=== PATIENT | female | born 1995 | race African-American/Black ===

== ENCOUNTER 2024-11-22 11:58 | Observation (INO) | payer OTHER ==
--- NOTE | 2024-11-22 12:46 | DVH ---
CLINICAL HISTORY: -induced hypertension. COMPARISON: None TECHNIQUE: biophysical profile was performed. Transabdominal sonographic images of the fetus we re obtained. FINDINGS: The fetus is in cephalic position. heart rate measures 139 BPM. Amniotic fluid index measures 15.2 cm. The placenta is posterior in position without evidence of previa or abruption. The umbilical cord wraps at least partly around the neck. Possible nuchal cord BPP profile is an overall score of 8/8, with 2/2 points for breathing, with at least one episode of breathing over a 30 second duration during a 30 minute observation, 2/2 points for m ovements, with 3 or more discrete body or limb movements, 2/2 points for tone, with one or more episodes of extremity extension with return to flexion, or opening and closing of hand, and 2/ 2 points for amniotic fluid, with at least 1 pocket of amniotic fluid that measures 2 cm in 2 perpend icular planes. IMPRESSION: 1. BPP score of 8/ 2. Possible nuchal cord.
[2024-11-22 12:58] LABS: Hematocrit 31.5 % (36.0-46.0); Hemoglobin 10.6 g/dL (12.2-16.2); Mean Corpuscular Hemoglobin 26.9 pg (28.0-32.0); Mean Corpuscular Volume 80.1 fL (80.0-100.0); Nucleated Red Blood Cells % 0.1 %
[2024-11-22 13:15] LABS: INR 0.97 (0.9-1.15); Partial Thromboplastin Time 25.3 SEC (24.5-34.5); Prothrombin Time 10.3 sec (9.3-11.8)
[2024-11-22 13:15] LABS: Urine Protein, UAD 1+ (Negative)
[2024-11-22 13:21] LABS: Albumin 4.2 g/dL (3.2-4.8); Alkaline Phosphatase 87 U/L (46-116); Anion Gap 9 (5-15); Calcium 8.9 mg/dL (8.7-10.4); Carbon Dioxide 23 mmol/L (20-31); Chloride 105 mmol/L (98-107); Glucose 79 mg/dL (74-106); Potassium 3.9 mmol/L (3.5-5.1); Sodium 137 mmol/L (136-145); Total Protein 6.7 g/dL (5.7-8.2); Uric Acid 4.0 mg/dL (3.1-7.8)
[2024-11-22 13:22] LABS: Alanine Aminotransferase < 9 U/L (7-40); BUN/Creatinine Ratio 11.4 (10.0-20.0); Bilirubin, Total 0.2 mg/dL (0.2-1.0); Blood Urea Nitrogen < 5 mg/dL (9-23)
[2024-11-22 13:39] LABS: Protein, Urine 17.0 mg/dL (1-14)
--- NOTE | 2024-11-22 22:36 | DVHDS2 ---
Physician Discharge Progress N Final Diagnosis: testing for hx of preeclampsia Operations or Procedures: Operations or Procedures 29yo IUP@32.3wks. Denies UCs/LOF/VB/CARRASCO/vision changes/RUQ pain. Endorses +FM. VSS, normotensive NST reactive FKC/PTL/preE precautions reviewed Dr. Steele consulted, agrees with POC. Laboratory Tests Test 11/22/24 12:04 11/22/24 12:30 Range/Units Urine Color Yellow Yellow Urine Clarity Turbid H Clear Urine pH 6.0 5.0-9.0 Urine Specific Mullen 1.026 1.001-1.035 Urine Protein 1+ H Negative Urine Ketones Trace Negative Urine Blood Negative Negative /uL Urine Nitrite Negative Negative Urine Bilirubin Negative Negative Urine Urobilinogen Normal Negative mg/dL Urine Leukocyte Esterase 1+ Negative /uL Urine RBC 4 0 - 4 /hpf Urine Microscopic WBC 3 0-5 /HPF Urine Squamous Epithelial Cells Mod <5 /hpf Urine Calcium Oxalate Crystals Few None Seen Urine Bacteria Few H None Seen /hpf Urine Mucus Few None Seen Urine Creatinine 213.32 H 30.0-125.0 mg/dL Urine Protein/Creatinine Ratio 0.08 Urine Glucose Trace Normal mg/dL Urine Total Protein 17.0 H 1-14 mg/dL White Blood Count 7.4 4.4-10.8 10^3/uL Red Blood Count 3.93 L 4.0-5.20 10^6/uL Hemoglobin 10.6 L 12.2-16.2 g/dL Hematocrit 31.5 L 36.0-46.0 % Mean Corpuscular Volume 80.1 80.0-100.0 fL Mean Corpuscular Hemoglobin 26.9 L 28.0-32.0 pg Mean Corpuscular Hemoglobin Concent 33.6 32.0-36.0 g/dL Red Cell Distribution Width 15.5 H 11.8-14.3 % Platelet Count 250 140-450 10^3/uL Mean Platelet Volume 7.8 6.9-10.8 fL Neutrophils (%) (Auto) 73.8 37.0-80.0 % Lymphocytes (%) (Auto) 19.4 10.0-50.0 % Monocytes (%) (Auto) 5.7 0.0-12.0 % Eosinophils (%) (Auto) 0.6 0.0-7.0 % Basophils (%) (Auto) 0.5 0.0-2.0 % Neutrophils # (Auto) 5.4 1.6-8.6 10 ^3/uL Lymphocytes # (Auto) 1.4 0.4-5.4 10 ^3/uL Monocytes # (Auto) 0.4 0-1.3 10 ^3/uL Eosinophils # (Auto) 0 0-0.8 10 ^3/uL Basophils # (Auto) 0 0-0.2 10 ^3/uL Nucleated Red Blood Cells 0.1 % Prothrombin Time 10.3 9.3-11.8 sec Prothrombin Time INR 0.97 0.9-1.15 Activated Partial Thromboplast Time 25.3 24.5-34.5 SEC Sodium Level 137 136-145 mmol/L Potassium Level 3.9 3.5-5.1 mmol/L Chloride Level 105 98-107 mmol/L Carbon Dioxide Level 23 20-31 mmol/L Anion Gap 9 5-15 Blood Urea Nitrogen < 5 L 9-23 mg/dL Creatinine 0.44 L 0.550-1.02 mg/dL Glomerular Filtration Rate Calc 133 >90 mL/min BUN/Creatinine Ratio 11.4 10.0-20.0 Serum Glucose 79 74-106 mg/dL Uric Acid 4.0 3.1-7.8 mg/dL Calcium Level 8.9 8.7-10.4 mg/dL Total Bilirubin 0.2 0.2-1.0 mg/dL Aspartate Amino Transferase (AST) 21 13-40 U/L Alanine Aminotransferase (ALT) < 9 7-40 U/L Alkaline Phosphatase 87 46-116 U/L Total Protein 6.7 5.7-8.2 g/dL Albumin 4.2 3.2-4.8 g/dL Other Interventions Other Interventions [place] [address] Ph: [phone] DIAGNOSTIC IMAGING Diagnostic Imaging Report : [id number] Signed PATIENT: JAVIER IBANEZ ACCT: [id number] UNIT: [id number] : 1995 LOC: [facility] ROOM / BED: TRIAGE2 / A AGE / SEX: 29 / F ADM STATUS: ADM IN SERVICE 1204 ORDERING PHYSICIAN: CÉSAR WELLS CNM PROCEDURE(s): BPP - BIOPHYSICAL PROFILE REASON: [facility] ORDER NUMBER(s): [id number], ACCESSION NUMBER(s): [id number] CLINICAL HISTORY: -induced hypertension. COMPARISON: None TECHNIQUE: biophysical profile was performed. Transabdominal sonographic images of the fetus were obtained. FINDINGS: The fetus is in cephalic position. heart rate measures 139 BPM. Amniotic fluid index measures 15.2 cm. The placenta is posterior in position without evidence of previa or abruption. The umbilical cord wraps at least partly around the neck. Possible nuchal cord BPP profile is an overall score of 8/8, with 2/2 points for breathing, with at least one episode of breathing over a 30 second duration during a 30 minute observation, 2/2 points for movements, with 3 or more discrete body or limb movements, 2/2 points for tone, with one or more ep isodes of extremity extension with return to flexion, or opening and closing of hand, and 2/2 points for amniotic fluid, with at least 1 pocket of amniotic fluid that measures 2 cm in 2 perpendicular planes. IMPRESSION: 1. BPP score of 8/ 2. Possible nuchal cord. ATED BY: WENDI HAWKINS DO DICTATED DATE/TIME: 11/22/241243 SIGNED BY: WENDI HAWKINS DO SIGNED DATE/TIME: 11/22/241243 CC: Condition on Discharge: Stable Disposition: Home Discharge Instructions: Diet: Regular Activity: No Restrictions, As Tolerated Medications: see med list Follow Up Care: Specialist: f/u in 1 wk Discharge Statement: "Patient was advised to return to the ER or call 911 if any headaches, dizziness, shortness of breath, chest pain, abdominal pain, bleeding, fevers, or worsening of medical condition. Patient was counseled about treatment plan, medications, possible side effects, patientverbalized understanding. All questions were answered to the best of my ability. This discharge took greater then 30 minutes in planning, reviewing documentation, counseling the patient, and discussing with other team members." Visit Coding OBGYN Date of Service: Nov 23, 2024 Billing Provider: CÉSAR WELLS CNM STOPPER SETTER Common Visit Codes: 73191-[id number] OBS CARE (HIGH) STOPPER SETTER Procedure Codes: 61088-33- NON-STRESS TEST CÉSAR WELLS Nov 22, 2024 22:36
== END 2024-11-22 13:57 | disposition home or self-care (01) ==
LOC: LDRP 11:58
PROVIDERS: ADMIT Obstetrics & Gynecology; ATTEND Obstetrics & Gynecology
DX: O13.3 Gestational [pregnancy-induced] hypertension without significant proteinuria, third trimester (principal); O14.93 Unspecified pre-eclampsia, third trimester; Z3A.32 32 weeks gestation of pregnancy; Z79.899 Other long term (current) drug therapy; Z98.890 Other specified postprocedural states
CPT/HCPCS: 36415; 76818; 80053; 81001; 81002; 82570; 84156; 84550; 85025; 85610; 85730; 94760; G0378; 59025; 76819

== ENCOUNTER 2024-12-02 06:18 | Observation (INO) | payer OTHER ==
--- NOTE | 2024-12-02 11:20 | DVH ---
CLINICAL HISTORY: -induced hypertension. COMPARISON: US BIOPHYSICAL PROFILE on DOS: 11/22/24 TECHNIQUE: biophysical profile was performed. Transabdominal sonographic images of the fetus we re obtained. FINDINGS: The fetus is in cephalic position. heart rate measures 156 BPM. Amniotic fluid index measures 18.7 cm. The placenta is posterior in position without evidence of previa or abruption. No n uchal cord visualized on this exam. BPP profile is an overall score of 8/8, with 2/2 points for breathing, with at least one episode of breathing over a 30 second duration during a 30 minute observation, 2/2 points for m ovements, with 3 or more discrete body or limb movements, 2/2 points for tone, with one or more episodes of extremity extension with return to flexion, or opening and closing of hand, and 2/ 2 points for amniotic fluid, with at least 1 pocket of amniotic fluid that measures 2 cm in 2 perpend icular planes. IMPRESSION: 1. BPP score of 8/8. 2. No nuchal cord visualized on this exam as was seen previously.
--- NOTE | 2024-12-03 08:10 | DVHDS2 ---
Physician Discharge Progress N Final Diagnosis: IUP @ 33.6wks 33wks Operations or Procedures: Operations or Procedures nst reactive reviwed,sono Condition on Discharge: Good Disposition: Home Discharge Instructions: Diet: Regular Activity: Light activity Medications: na Follow Up Care: Specialist: 1w Discharge Statement: "Patient was advised to return to the ER or call 911 if any headaches, dizziness, shortness of breath, chest pain, abdominal pain, bleeding, fevers, or worsening of medical condition. Patient was counseled about treatment plan, medications, possible side effects, patientverbalized understanding. All questions were answered to the best of my ability. This discharge took greater then 30 minutes in planning, reviewing documentation, counseling the patient, and discussing with other team members." Visit Coding OBGYN Date of Service: Dec 02, 2024 Billing Provider: KINGSLEY SHAW DO LINER INSTALLER Common Visit Codes: [id number] OBS CARE (HIGH) LINER INSTALLER Procedure Codes: 82062-48- NON-STRESS TEST KINGSLEY SHAW DO Dec 03, 2024 08:10
== END 2024-12-02 12:19 | disposition home or self-care (01) ==
LOC: LDRP 10:11 → UNDOADMOB 10:11 → LDRP 10:23 → UNDODISOB 12:19
PROVIDERS: ADMIT Obstetrics & Gynecology; ATTEND Obstetrics & Gynecology
DX: O62.9 Abnormality of forces of labor, unspecified (principal); Z3A.33 33 weeks gestation of pregnancy; Z79.899 Other long term (current) drug therapy; Z98.890 Other specified postprocedural states
CPT/HCPCS: 76818; 81002; 94760; G0378; 59025; 76819

== ENCOUNTER 2024-12-09 10:07 | Observation (INO) | payer OTHER ==
[2024-12-09] MEDS ORDERED: PREN-96 PO (10:19)
--- NOTE | 2024-12-09 10:52 | DVH ---
BIOPHYSICAL PROFILE HISTORY: PIH Comparison Study: US BIOPHYSICAL PROFILE on DOS: 12/02/24, US BIOPHYSICAL PROFILE on DOS: 11/22/24 TECHNIQUE: Multiple real-time grayscale sonographic images through the gravid uterus of the fetus wi th duplex Doppler color flow and M-mode spectral analysis FINDINGS: BIOPHYSICAL PROFILE: breathing score: 2 movement score: 2 tone score: 2 Quantitative BRADFORD score: 2 (BRADFORD: 23.4 Cm.) Total score: 8 The cervix is not visualized Single live fetus in cephalic presentation. heart rate 162 beats per minute. Posterior placenta without previa or abruption IMPRESSION: Biophysical profile score: 8
--- NOTE | 2024-12-09 12:27 | DVHDS2 ---
Physician Discharge Progress N Final Diagnosis: PIH RULED OUT Operations or Procedures: Operations or Procedures NST REACTIVE REVIWED,SONO Condition on Discharge: Good Disposition: Home Discharge Instructions: Diet: Regular Activity: No Restrictions, As Tolerated Follow Up/Referral: Follow up on ThursdayDecember 16 at 10:00 am for NST/BPP Medications: NA Follow Up Care: Specialist: 1W Discharge Statement: "Patient was advised to return to the ER or call 911 if any headaches, di zziness, shortness of breath, chest pain, abdominal pain, bleeding, fevers, or worsening of medical condition. Patient was counseled about treatment plan, medications, possible side effects, patientverbalized understanding. All questions were answered to the best of my ability. This discharge took greater then 30 minutes in planning, reviewing documentation, counseling the patient, and discussing with other team members." Visit Coding OBGYN Date of Service: Dec 09, 2024 Billing Provider: KINGSLEY SHAW DO JAVA WEBSPHERE DEVELOPER Common Visit Codes: [id number] OBS CARE (HIGH) JAVA WEBSPHERE DEVELOPER Procedure Codes: 89810-51- NON-STRESS TEST KINGSLEY SHAW DO Dec 09, 2024 12:27
== END 2024-12-09 11:49 | disposition home or self-care (01) ==
LOC: LDRP 10:07
PROVIDERS: ADMIT Obstetrics & Gynecology; ATTEND Obstetrics & Gynecology
DX: O13.3 Gestational [pregnancy-induced] hypertension without significant proteinuria, third trimester (principal); Z3A.34 34 weeks gestation of pregnancy; Z79.899 Other long term (current) drug therapy
CPT/HCPCS: 76818; 81002; G0378; 59025; 76819

== ENCOUNTER 2024-12-16 06:47 | Observation (INO) | payer OTHER ==
[~2024-12-16 06:47] MED LIST: PREN-96 PO
--- NOTE | 2024-12-16 10:59 | DVH ---
BIOPHYSICAL PROFILE HISTORY: PIH TECHNIQUE: Multiple real-time grayscale sonographic images through the gravid uterus of the fetus wi th duplex Doppler color flow. FINDINGS: BIOPHYSICAL PROFILE: breathing score: 2 movement score: 2 tone score: 2 Quantitative BRADFORD score: 2 Total score: 8 out of 8 Live intrauterine . Placenta fundal least/ posteriorly positioned. Cephalic lie. he art rate of 141 beats per minute. BRADFORD 23.7 cm IMPRESSION: Biophysical profile score: 8 out of 8
--- NOTE | 2024-12-16 13:30 | DVHDS2 ---
Physician Discharge Progress N Final Diagnosis: hx of pih 36wks Operations or Procedures: Operations or Procedures nst reactive reviwed,sono Condition on Discharge: Good Disposition: Home Discharge Instructions: Diet: Regular Activity: No Restrictions, As Tolerated Medications: na Follow Up Care: Specialist: 1w Discharge Statement: "Patient was advised to return to the ER or call 911 if any headaches, dizziness, shortness of breath, chest pain, abdominal pain, bleeding, fevers, or worsening of medical condition. Patient was counseled about treatment plan, medications, possible side effects, patientverbalized understanding. All questions were answered to the best of my ability. This discharge took greater then 30 minutes in planning, reviewing docu mentation, counseling the patient, and discussing with other team members." Visit Coding OBGYN Date of Service: Dec 16, 2024 Billing Provider: KINGSLEY SHAW DO CALCIMINER Common Visit Codes: [id number] OBS CARE (HIGH) CALCIMINER Procedure Codes: 93598-53- NON-STRESS TEST KINGSLEY SHAW DO Dec 16, 2024 13:30
== END 2024-12-16 11:40 | disposition home or self-care (01) ==
LOC: LDRP 10:05
PROVIDERS: ADMIT Obstetrics & Gynecology; ATTEND Obstetrics & Gynecology
DX: O13.3 Gestational [pregnancy-induced] hypertension without significant proteinuria, third trimester (principal); Z3A.36 36 weeks gestation of pregnancy; Z98.890 Other specified postprocedural states; Z79.899 Other long term (current) drug therapy
CPT/HCPCS: 76818; 81002; 94760; G0378; 59025; 76819

== ENCOUNTER 2024-12-23 06:27 | Observation (INO) | payer OTHER ==
--- NOTE | 2024-12-23 11:42 | DVH ---
BIOPHYSICAL PROFILE HISTORY: PIH TECHNIQUE: Multiple transabdominal real-time grayscale sonographic images through the gravid uterus of the fetus with duplex Doppler color flow and M-mode spectral analysis FINDINGS: BIOPHYSICAL PROFILE: breathing score: movement score: 2 tone score: 2 Quantitative BRADFORD score: 2 (BRADFORD: 21 Cm.) Total score: 8 The cervix not well visualized. Single live fetus in cephalic presentation. heart rate 139 beats per minute. Fundal placenta without previa or abruption IMPRESSION: Biophysical profile score: 8
--- NOTE | 2024-12-26 12:30 | DVHDS2 ---
Physician Discharge Progress N Final Diagnosis: pih 38wks ruled out Operations or Procedures: Operations or Procedures nst reactive reviwed,sono Condition on Discharge: Good Disposition: Home Discharge Instructions: Diet: Regular Activity: No Restrictions, As Tolerated Medications: na Follow Up Care: Specialist: 1w Discharge Statement: "Patient was advised to return to the ER or call 911 if any headaches, dizziness, shortness of breath, chest pain, abdominal pain, bleeding, fevers, or worsening of medical condition. Patient was counseled about treatment plan, medications, possible side effects, patientverbalized understanding. All questions were answered to the best of my ability. This discharge took greater then 30 minutes in planning, reviewing documentation, counseling the patient, and discussing with other team members." Visit Coding OBGYN Date of Service: Dec 23, 2024 Billing Provider: KINGSLEY SHAW DO PRODUCTION PROOFREADER Common Visit Codes: [id number] OBS CARE (HIGH) PRODUCTION PROOFREADER Procedure Codes: 45715-92- NON-STRESS TEST KINGSLEY SHAW DO Dec 26, 2024 12:30
== END 2024-12-23 12:05 | disposition left against medical advice (07) ==
LOC: LDRP 10:35 → UNDOADMOB 10:35 → LDRP 10:43
PROVIDERS: ADMIT Obstetrics & Gynecology; ATTEND Obstetrics & Gynecology
DX: Z36.89 Encounter for other specified antenatal screening (principal); Z3A.35 35 weeks gestation of pregnancy; Z79.899 Other long term (current) drug therapy; Z98.890 Other specified postprocedural states
CPT/HCPCS: 76819; G0378

== ENCOUNTER 2024-12-30 06:05 | Observation (INO) | payer OTHER ==
[~2024-12-30] VITALS: Ht 160 cm; Wt 110.2 kg
[2024-12-30] MEDS ORDERED: ACETAMINOPHEN 325 MG TAB PO ONE (11:15)
--- NOTE | 2024-12-30 11:32 | DVH ---
BIOPHYSICAL PROFILE HISTORY: PIH Comparison Study: US BIOPHYSICAL PROFILE on DOS: 12/23/24, US BIOPHYSICAL PROFILE on DOS: 12/16/24, US BI OPHYSICAL PROFILE on DOS: 12/09/24, US BIOPHYSICAL PROFILE on DOS: 12/02/24, US BIOPHYSICAL PROFILE on DOS: 11/22/24 TECHNIQUE: Multiple real-time grayscale sonographic images through the gravid uterus of the fetus wi th duplex Doppler color flow and M-mode spectral analysis FINDINGS: BIOPHYSICAL PROFILE: breathing score: 2 movement score: 2 tone score: 2 Quantitative BRADFORD score: 2 (BRADFORD: 15.3 Cm.) Total score: 8 The cervix is not visualized Single live fetus in cephalic presentation. heart rate 155 beats per minute. Grade 2, fundal/posterior placenta without previa or abruption IMPRESSION: Biophysical profile score: 8
[2024-12-30] MEDS: ACETAMINOPHEN 500 MG TAB or CAP PO ONE (11:43)
[2024-12-30 11:46] LABS: Nucleated Red Blood Cells % 0.1 %
[2024-12-30 11:50] LABS: Hematocrit 30.2 % (36.0-46.0); Hemoglobin 10.1 g/dL (12.2-16.2); Mean Corpuscular Hemoglobin 25.7 pg (28.0-32.0); Mean Corpuscular Volume 76.7 fL (80.0-100.0)
[2024-12-30 11:59] LABS: Alanine Aminotransferase < 9 U/L (7-40); Albumin 4.0 g/dL (3.2-4.8); Alkaline Phosphatase 99 U/L (46-116); Anion Gap 9 (5-15); BUN/Creatinine Ratio 15.2 (10.0-20.0); Blood Urea Nitrogen < 5 mg/dL (9-23); Calcium 8.8 mg/dL (8.7-10.4); Carbon Dioxide 24 mmol/L (20-31); Chloride 103 mmol/L (98-107); Glucose 86 mg/dL (74-106); Potassium 4.2 mmol/L (3.5-5.1); Sodium 136 mmol/L (136-145); Total Protein 6.3 g/dL (5.7-8.2); Uric Acid 4.1 mg/dL (3.1-7.8)
[2024-12-30 12:00] LABS: Bilirubin, Total 0.2 mg/dL (0.2-1.0)
[2024-12-30 12:06] LABS: INR 0.94 (0.9-1.15); Partial Thromboplastin Time 23.7 SEC (24.5-34.5); Prothrombin Time 10.0 sec (9.3-11.8)
[2024-12-30 12:14] LABS: Amphetamine Screen, Urine Neg (NEGATIVE); Barbiturate Scree,Urine Neg (NEGATIVE); Benzodiazephine Screen, Urine Neg (NEGATIVE); Cannabinoid Screen, Urine Neg (NEGATIVE); Cocaine Screen, Urine Neg (NEGATIVE); Opiate Scree,Urine Neg (NEGATIVE); Phencyclidine Screen, Urine Neg (NEGATIVE)
[2024-12-30 12:16] LABS: Urine Protein, UAD Negative (Negative)
--- NOTE | 2024-12-30 12:27 | DVHDS2 ---
Physician Discharge Progress N Final Diagnosis: head ache pih ruled out 37wks Operations or Procedures: Operations or Procedures nst reactive reviwed,sono Condition on Discharge: Good Disposition: Home Discharge Instructions: Diet: Regular Activity: No Restrictions, As Tolerated Medications: na Follow Up Care: Specialist: 2d Discharge Statement: "Patient was advised to return to the ER or call 911 if any headaches, dizziness, shortness of breath, chest pain, abdominal pain, bleeding, fevers, or worsening of medical condition. Patient was counseled about treatment plan, medications, possible side effects, patientverbalized understanding. All questions were answered to the best of my ability. This discharge took greater then 30 minutes in planning, reviewing documentation, counseling the patient, and discussing with other team members." Visit Coding OBGYN Date of Service: Dec 30, 2024 Billing Provider: KINGSLEY SHAW DO SEWER CLEANER Common Visit Codes: [id number] INP/OBS CARE (HIGH) SEWER CLEANER Procedure Codes: 79627-89- NON-STRESS TEST KINGSLEY SHAW DO Dec 30, 2024 12:27
[2024-12-30 12:35] LABS: Protein, Urine 12.7 mg/dL (1-14)
== END 2024-12-30 12:47 | disposition home or self-care (01) ==
LOC: LDRP 10:05
PROVIDERS: ADMIT Obstetrics & Gynecology; ATTEND Obstetrics & Gynecology
DX: O13.3 Gestational [pregnancy-induced] hypertension without significant proteinuria, third trimester (principal); O26.893 Other specified pregnancy related conditions, third trimester; R51.9 Headache, unspecified; Z3A.37 37 weeks gestation of pregnancy; Z79.899 Other long term (current) drug therapy; Z98.890 Other specified postprocedural states
CPT/HCPCS: 36415; 76818; 80053; 80307; 81001; 81002; 82570; 84156; 84550; 85025; 85610; 85730; 94760; G0378; 59025; 76819

== ENCOUNTER 2025-01-01 10:55 | Observation (INO) | payer OTHER ==
[2025-01-01 12:29] LABS: Urine Protein, UAD 1+ (Negative)
[2025-01-01 12:55] LABS: Urine Total Volume, 24 Hours 1600 mL
[2025-01-01 13:15] LABS: Protein, Urine < 6.0 mg/dL (1-14)
--- NOTE | 2025-01-01 14:02 | DVHDS2 ---
Physician Discharge Progress N Final Diagnosis: Encounter for NST Secondary Diagnosis: Gestational hypertension Operations or Procedures: Operations or Procedures NST Commentary: Commentary Urine prot/cr ratio 0.06 24hr urine protein not indicated Condition on Discharge: Stable Disposition: Home Discharge Instructions: Diet: Regular Activity: Light activity Follow Up/Referral: As scheduled Medications: NA Follow Up Care: Discharge Statement: "Patient was advised to return to the ER or call 911 if any headaches, dizziness, shortness of breath, chest pain, abdominal pain, bleeding, fevers, or worsening of medical condition. Patient was counseled about treatment plan, medications, possible side effects, patientverbalized understanding. All questions were answered to the best of my ability. This discharge took greater then 30 minutes in planning, reviewing documentation, counseling the patient, and discussing with other team members." Visit Coding OBGYN Date of Service: Jan 01, 2025 Billing Provider: FLORENCE ESCOBEDO DO FILL TECHNICIAN Common Visit Codes: 55591-GDW/OBS SAME DATE (MOD) FILL TECHNICIAN Procedure Codes: 99722-26- NON-STRESS TEST FLORENCE ESCOBEDO DO Jan 01, 2025 14:02
== END 2025-01-01 14:19 | disposition home or self-care (01) ==
LOC: UNDOADMOB 10:55 → LDRP 10:55
PROVIDERS: ATTEND Obstetrics & Gynecology
DX: O13.3 Gestational [pregnancy-induced] hypertension without significant proteinuria, third trimester (principal); Z3A.38 38 weeks gestation of pregnancy; Z98.890 Other specified postprocedural states; Z79.899 Other long term (current) drug therapy
CPT/HCPCS: 59025; 81001; 82570; 84156; 94760; G0378

== ENCOUNTER 2025-01-07 19:37 | Inpatient (IN) | payer OTHER ==
[~2025-01-07] VITALS: Ht 160 cm; Wt 111.2 kg
[2025-01-07] MEDS ORDERED: PENICILLIN G POT 5MIL/D5 50ML 50 ML IV ONE (19:45)
[2025-01-07] MEDS ORDERED: LACTATED RINGER'S 1,000 ML IV SCH (19:45)
[2025-01-07] MEDS ORDERED: LIDOCAINE 2%HCL (LOCAL ANESTH.) INJ 20ML MDV IJ PRN (19:45)
[2025-01-07] MEDS ORDERED: TERBUTALINE SULFATE 1 MG/ML 1ML VIAL SC PRN (20:00)
[2025-01-07 20:13] LABS: Hemoglobin 10.3 g/dL (12.2-16.2); Nucleated Red Blood Cells % 0.2 %
[2025-01-07 20:15] LABS: Hematocrit 31.4 % (36.0-46.0); Mean Corpuscular Hemoglobin 24.7 pg (28.0-32.0); Mean Corpuscular Volume 75.8 fL (80.0-100.0)
[2025-01-07 20:28] LABS: Albumin 4.1 g/dL (3.2-4.8); Alkaline Phosphatase 104 U/L (46-116); Anion Gap 12 (5-15); Calcium 9.2 mg/dL (8.7-10.4); Carbon Dioxide 23 mmol/L (20-31); Chloride 103 mmol/L (98-107); Potassium 4.1 mmol/L (3.5-5.1); Sodium 138 mmol/L (136-145); Total Protein 6.8 g/dL (5.7-8.2); Uric Acid 4.8 mg/dL (3.1-7.8)
[2025-01-07 20:29] LABS: Alanine Aminotransferase < 9 U/L (7-40); BUN/Creatinine Ratio 7.8 (10.0-20.0); Bilirubin, Total 0.2 mg/dL (0.2-1.0); Blood Urea Nitrogen < 5 mg/dL (9-23); Glucose 116 mg/dL (74-106)
[2025-01-07 20:33] LABS: INR 0.95 (0.9-1.15); Partial Thromboplastin Time 23.2 SEC (24.5-34.5); Prothrombin Time 10.1 sec (9.3-11.8)
[2025-01-07 20:34] LABS: Urine Protein, UAD Negative (Negative)
[2025-01-07 20:38] LABS: Barbiturate Scree,Urine Neg (NEGATIVE); Opiate Scree,Urine Neg (NEGATIVE)
[2025-01-07 20:39] LABS: Amphetamine Screen, Urine Neg (NEGATIVE); Benzodiazephine Screen, Urine Neg (NEGATIVE); Cannabinoid Screen, Urine Neg (NEGATIVE); Cocaine Screen, Urine Neg (NEGATIVE); Phencyclidine Screen, Urine Neg (NEGATIVE)
--- NOTE | 2025-01-07 21:19 | DVHHP2 ---
OB CC & HPI Date Date of Admission: Jan 07, 2025 Patient Identification: : 4 Para: 3 EDC: Jan 14, 2025 Chief Complaints: Reason for admission: induction of labor Indication for induction: other Other reason for admission: IOL for Elevated Blood Pressures Admission Nurse Assessment Rev: Yes Past Medical History Past Surgical History: Other (B) Others Breast Reduction OB History OB History Care: Good Care Ultrasounds: Normal mid trimester US Allergies: Coded Allergies: NO KNOWN ALLERGIES (Unverified , 12/02/24) Home Meds Reported Medications Vit W/ Ferrous Fumara ( One Daily) Daily Tab, 1 TAB PO DAILY, #90 TAB 3 Refills 12/09/24 Current Medications Current Medications Medications (Trade) Dose Ordered Sig/Margarito Route PRN Reason Start Time Stop Time Status Last Admin Lactated Ringer's 1,000 ml @ 125 mls/hr Q8H IV 01/07/25 19:45 Nalbuphine HCl (Nubain) 10 mg Q4HP PRN IV MODERATE PAIN (4-6 PAIN SCALE) 01/07/25 19:45 Penicillin G Potassium 2754004 units/Dextrose 50 ml @ 100 mls/hr Q4H IV 01/07/25 23:45 Witch Carmen (Tucks) 1 pad PRN PRN TOP PERINEAL AREA DISCOMFORT 01/07/25 19:45 Sodium Lauryl Sulfate (Phisoderm) 240 ml PRN PRN TOP PERINEAL AREA DISCOMFORT 01/07/25 19:45 Benzocaine (Dermoplast) 1 applic PRN PRN TOP PERINEAL AREA DISCOMFORT 01/07/25 19:45 Lidocaine HCl (Xylocaine) 20 ml ONCE PRN IJ PERINEAL AREA DISCOMFORT 01/07/25 19:45 Ondansetron HCl (Zofran) 4 mg Q6HPRN PRN IV NAUSEA / VOMITING 01/07/25 20:00 Terbutaline Sulfate (Brethine Inj) 0.25 mg ONCE PRN SC Uterine tachysystole 01/07/25 20:00 Famotidine (Pepcid Injection) 40 mg DAILY PRN IV FOR STOMACH DISTRESS 01/07/25 20:00 Misoprostol (Cytotec) 50 mcg Q4HPRN PRN PO CERVICAL RIPENING 01/07/25 21:00 Review of Systems Constitutional: No symptom reported Ears, Nose, & Throat: No symptom reported Eyes: No symptom reported Pulmonary/Respiratory: No symptom reported Cardiovascular: No symptom reported Gastrointestinal: No symptom reported, Other (Acid Reflux ) Genitourinary: No symptom reported Musculoskeletal: No symptom reported Skin: No symptom reported Psychiatric: No symptom reported Endocrine: No symptom reported Hemotologic/Lymphatic: No symptom reported OB Admission Exam Physical Exam HEENT: NCAT, Moist Membranes Heart: Rhythm Normal Lungs: Clear Abdomen: Gravid Extremities: Normal Reflexes: Normal Pelvic Exam: Cephalic by radha Cervical Dilatation: 1cm Effacement: Other Station: -2 Membranes: Intact Heart Rate: 130's Accelerations: Accelerations Present Decelerations: No Decelerations Intermediate Variability: Average (6-25) Contractions on Admission: None OB Plan Plan Admitting Diagnosis: INDUCTION OF LABOR FOR GEST HTN Plan: Induction Induction Methd: Misoprostol protocol Other Plan: HPI: 30yo IUP@39w0d presents to unit for Induction of labor for elevated blood pressures. Denies LOF/VB/CARRASCO/vision changes/RUQ pain. Reports good movement PNC: Routine PNC at [facility] OB, adequate visits, PNC complicated by iron deficiency anemia Hgb 10.3 Blood Type B Positive Antibody Negative GTT wnl, GBS negative. OB hx: X3 Preeclampsia with second Delayed PPH with third , no blood transfusion Objective EFW - 7lbs 8 oz Cephalic : Radha / US 01/05 SVE - Assessment/Plan 30yo IUP@39w0d Induction of Labor Elevated Blood Pressures Category I EFM Intact Membranes GBS negative CNM is co-managing care with Dr. Steele. Plan Admit to L&D Informed consent obtained Discussed risks, benefits, Pt consents to IOL with Misoprostal 50 mcg p.o. Desires epidural for pain management Expectant management for now due to frequent UCs monitoring per order Routine labs ordered Pain mgmt PRN Frequent position changes in and out of bed encouraged Limit SVE unless necessary Intrauterine resuscitation PRN Anticipate CNM will consult with Dr. Steele PRN Visit Coding OBGYN Date of Service: Jan 07, 2025 Billing Provider: KINGSLEY STEELE DO OPERATIONS BOARDMAN Common Visit Codes: [id number] OBS CARE (MOD) KWABENA BARKSDALEug 2024 21:19
[2025-01-07 21:49] LABS: Protein, Urine < 6.0 mg/dL (1-14)
[2025-01-07] MEDS ORDERED: MORPHINE SULFATE INJ 2 MG/ml SYRG IM ONE (23:00)
[2025-01-07] MEDS ORDERED: ONDANSETRON HCL 4 MG/2 ML VIAL IM ONE (23:00)
[2025-01-07] MEDS: ACETAMINOPHEN 325 MG TAB PO ONE (23:21)
[2025-01-07] MEDS ORDERED: PENICILLIN G POTASSIUM 2,500,000 UNITS in D5W 5% 50 ML IV SCH (23:45)
[2025-01-08] MEDS: FAMOTIDINE (10MG/ML) 2ML VL IV PRN (00:03)
[2025-01-08] MEDS: DERMOPLAST 60ML BOTTLE TOP PRN (00:20)
[2025-01-08] MEDS: WITCH HAZEL-GLYCERIN PAD TOP PRN (00:20)
[2025-01-08] MEDS: PHISODERM TOP SOLN 240ML BTL TOP PRN (00:20)
--- NOTE | 2025-01-08 01:11 | DVH ---
INDICATION: presenting part for induction of labor TECHNIQUE: Limited single grayscale obstetric image. COMPARISON: None FINDINGS: Cephalic presentation. The cervix is obscured. No other assessment was performed. IMPRESSION: 1. Limited obstetrical assessment. Cephalic gestational presentation.
[2025-01-08] MEDS ORDERED: LACT. RINGERS/OXYTOCIN 20UNITS 500 ML IV ONE ×2 (04:00→04:30)
[2025-01-08] MEDS: NALBUPHINE HCL 10 MG/1ml INJECTION IV PRN (04:32)
--- NOTE | 2025-01-08 04:35 | DVHPN2 ---
CNM Labor Progress Note Date and Time Seen Date Seen: Jan 08, 2025 Time Seen: 04:30 Subjective Patient reports: Feels better Subjective Comment Subjective 30yo IUP@39w0d Induction of labor for elevated blood pressures. Blood Type B Positive Antibody Negative GTT wnl, GBS negative. Received Misoprostol 50 mcg P.O X2 doses Received Tylenol 650 mg for pain Objective VSS. EFW - 7lbs 8 oz Cephalic : [place] / US 01/05 SVE -06/16/-2 Assessment/Plan 30yo IUP@39w0d Induction of Labor Elevated Blood Pressures Category I Tracing Intact Membranes GBS negative CNM is co-managing care with Dr. Steele. Plan Continue Misoprostol 50 mcg p.o. per protocol as induction method Nubain IV for pain management in latent labor Desires epidural for pain management PRN monitoring per order Frequent position changes in and out of bed encouraged Limit SVE unless necessary Intrauterine resuscitation PRN Anticipate CNM will consult with Dr. Steele PRN Monitoring Method Monitoring Method: External Heart Rate Heart Rate Baseline: 130 Heart Rate Variability: Moderate Presence of FHR Accelerations: Yes Presence of FHR Decelerations: No Changes in Trends of Patterns: No Are all 5 Components of the FH: Yes Contractions Contractions Frequency: Occasional Contractions Intensity: Mild Contractions Resting Tone: Relaxed Membranes Membranes: Intact Vaginal Exam Vag Exam Deferred: Yes Lab Results Lab Results Current Medications Medications (Trade) Dose Ordered Sig/Margarito Start Time Stop Time Status Last Admin Dose Admin Lactated Ringer's 1,000 ml @ 125 mls/hr Q8H 01/07/25 19:45 Nalbuphine HCl (Nubain) 10 mg Q4HP PRN 01/07/25 19:45 Penicillin G Potassium 50 ml @ 100 mls/hr ONCE ONCE 01/07/25 19:45 01/07/25 20:14 DC Penicillin G Potassium [id number] units/Dextrose 50 ml @ 100 mls/hr Q4H 01/07/25 23:45 Jerson Morales (Tucks) 1 pad PRN PRN 01/07/25 19:45 01/08/25 00:20 1 PAD Sodium Lauryl Sulfate (Phisoderm) 240 ml PRN PRN 01/07/25 19:45 01/08/25 00:20 240 ML Benzocaine (Dermoplast) 1 applic PRN PRN 01/07/25 19:45 01/08/25 00:20 1 APPLIC Lidocaine HCl (Xylocaine) 20 ml ONCE PRN 01/07/25 19:45 Ondansetron HCl (Zofran) 4 mg Q6HPRN PRN 01/07/25 20:00 Terbutaline Sulfate (Brethine Inj) 0.25 mg ONCE PRN 01/07/25 20:00 Oxytocin 500 ml @ 999 mls/hr Q31M ONCE 01/08/25 04:00 01/08/25 04:30 Oxytocin 500 ml @ 125 mls/hr Q4H ONCE 01/08/25 04:30 01/08/25 08:29 Famotidine (Pepcid Injection) 40 mg DAILY PRN 01/07/25 20:00 01/08/25 00:03 40 MG Misoprostol (Cytotec) 50 mcg Q4HPRN PRN 01/07/25 21:00 01/08/25 00:23 50 MCG Acetaminophen (Tylenol Tablet) 650 mg ONCE ONCE 01/07/25 23:00 01/07/25 23:14 DC 01/07/25 23:21 650 MG Morphine Sulfate 8 mg ONCE ONCE 01/07/25 23:00 01/07/25 23:14 DC Ondansetron HCl (Zofran) 4 mg ONCE ONCE 01/07/25 23:00 01/07/25 23:14 DC Laboratory Tests Test 01/07/25 21:15 01/07/25 20:15 01/07/25 20:00 Range/Units Urine Creatinine 31.06 30.0-125.0 mg/dL Urine Protein/Creatinine Ratio 0.19 Urine Total Protein < 6.0 1-14 mg/dL Urine Color Colorless Yellow Urine Clarity Clear Clear Urine pH 5.5 5.0-9.0 Urine Specific [place] 1.005 1.001-1.035 Urine Protein Negative Negative Urine Ketones Negative Negative Urine Blood Negative Negative /uL Urine Nitrite Negative Negative Urine Bilirubin Negative Negative Urine Urobilinogen Normal Negative mg/dL Urine Leukocyte Esterase Negative Negative /uL Urine RBC 1 0 - 4 /hpf Urine Microscopic WBC 1 0-5 /HPF Urine Squamous Epithelial Cells Few <5 /hpf Urine Bacteria Few H None Seen /hpf Urine Glucose Normal Normal mg/dL Urine Opiates Screen Neg NEGATIVE Urine Fentanyl Screen Neg NEGATIVE Urine Barbiturates Screen Neg NEGATIVE Urine Phencyclidine Screen Neg NEGATIVE Urine Amphetamines Screen Neg NEGATIVE Urine Benzodiazepines Screen Neg NEGATIVE Urine Cocaine Screen Neg NEGATIVE Urine Cannabinoids Screen Neg NEGATIVE White Blood Count 7.7 4.4-10.8 10^3/uL Red Blood Count 4.15 4.0-5.20 10^6/uL Hemoglobin 10.3 L 12.2-16.2 g/dL Hematocrit 31.4 L 36.0-46.0 % Mean Corpuscular Volume 75.8 L 80.0-100.0 fL Mean Corpuscular Hemoglobin 24.7 L 28.0-32.0 pg Mean Corpuscular Hemoglobin Concent 32.7 32.0-36.0 g/dL Red Cell Distribution Width 16.7 H 11.8-14.3 % Platelet Count 256 140-450 10^3/uL Mean Platelet Volume 8.1 6.9-10.8 fL Neutrophils (%) (Auto) 69.9 37.0-80.0 % Lymphocytes (%) (Auto) 24.1 10.0-50.0 % Monocytes (%) (Auto) 4.4 0.0-12.0 % Eosinophils (%) (Auto) 0.5 0.0-7.0 % Basophils (%) (Auto) 1.1 0.0-2.0 % Neutrophils # (Auto) 5.4 1.6-8.6 10 ^3/uL Lymphocytes # (Auto) 1.9 0.4-5.4 10 ^3/uL Monocytes # (Auto) 0.3 0-1.3 10 ^3/uL Eosinophils # (Auto) 0 0-0.8 10 ^3/uL Basophils # (Auto) 0.1 0-0.2 10 ^3/uL Nucleated Red Blood Cells 0.2 % Prothrombin Time 10.1 9.3-11.8 sec Prothrombin Time INR 0.95 0.9-1.15 Activated Partial Thromboplast Time 23.2 L 24.5-34.5 SEC Sodium Level 138 136-145 mmol/L Potassium Level 4.1 3.5-5.1 mmol/L Chloride Level 103 98-107 mmol/L Carbon Dioxide Level 23 20-31 mmol/L Anion Gap 12 5-15 Blood Urea Nitrogen < 5 L 9-23 mg/dL Creatinine 0.64 0.550-1.02 mg/dL Glomerular Filtration Rate Calc 121 >90 mL/min BUN/Creatinine Ratio 7.8 L 10.0-20.0 Serum Glucose 116 H 74-106 mg/dL Uric Acid 4.8 3.1-7.8 mg/dL Calcium Level 9.2 8.7-10.4 mg/dL Total Bilirubin 0.2 0.2-1.0 mg/dL Aspartate Amino Transferase (AST) 20 13-40 U/L Alanine Aminotransferase (ALT) < 9 7-40 U/L Alkaline Phosphatase 104 46-116 U/L Total Protein 6.8 5.7-8.2 g/dL Albumin 4.1 3.2-4.8 g/dL Treponema pallidum Antibody Non-reactive Negative Hepatitis C Antibody Negative Negative Plan Plan discussed with: Patient Visit Coding OBGYN Date of Service: Jan 08, 2025 Billing Provider: KWABENA BARKSDALE CNM SURGICAL ONCOLOGIST Common Visit Codes: [id number] OBS CARE (LOW) [facility] [place] [facility] 04:35
[2025-01-08 05:33] VITALS: BP 126/83; PULSE 83; RESP 16
--- NOTE | 2025-01-08 07:22 | DVHPN2 ---
Chief Complaints Patient reports: No new complaints, Feels better Nursing reports: No new complaints Objective Vitals Vital Signs Date Time Temp Pulse Resp B/P (MAP) Pulse Ox O2 Delivery O2 Flow Rate FiO2 01/08/25 05:33 83 16 126/83 Medications Current Medications Medications (Trade) Dose Ordered Sig/Margarito Route PRN Reason Start Time Stop Time Status Last Admin Benzocaine (Dermoplast) 1 applic PRN PRN TOP PERINEAL AREA DISCOMFORT 01/07/25 19:45 01/08/25 00:20 Famotidine (Pepcid Injection) 40 mg DAILY PRN IV FOR STOMACH DISTRESS 01/07/25 20:00 01/08/25 00:03 Lactated Ringer's 1,000 ml @ 125 mls/hr Q8H IV 01/07/25 19:45 Lidocaine HCl (Xylocaine) 20 ml ONCE PRN IJ PERINEAL AREA DISCOMFORT 01/07/25 19:45 Misoprostol (Cytotec) 50 mcg Q4HPRN PRN PO CERVICAL RIPENING 01/07/25 21:00 01/08/25 04:30 Nalbuphine HCl (Nubain) 10 mg Q4HP PRN IV MODERATE PAIN (4-6 PAIN SCALE) 01/07/25 19:45 01/08/25 04:32 Ondansetron HCl (Zofran) 4 mg Q6HPRN PRN IV NAUSEA / VOMITING 01/07/25 20:00 Penicillin G Potassium [id number] units/Dextrose 50 ml @ 100 mls/hr Q4H IV 01/07/25 23:45 Sodium Lauryl Sulfate (Phisoderm) 240 ml PRN PRN TOP PERINEAL AREA DISCOMFORT 01/07/25 19:45 01/08/25 00:20 Terbutaline Sulfate (Brethine Inj) 0.25 mg ONCE PRN SC Uterine tachysystole 01/07/25 20:00 Witch Carmen (Tucks) 1 pad PRN PRN TOP PERINEAL AREA DISCOMFORT 01/07/25 19:45 01/08/25 00:20 Others ve- unchanged Studies Laboratory Tests 01/07/25 20:00 Test 01/07/25 20:00 Range/Units Serum Glucose 116 H 74-106 mg/dL Ass/Plan Assessment iol Plan rec 4 cytotec Visit Coding OBGYN Date of Service: Jan 08, 2025 Billing Provider: KINGSLEY SHAW DO FENCE ERECTOR Common Visit Codes: [id number] INP/OBS CARE (HIGH) FENCE ERECTOR Procedure Codes: 81546-48- NON-STRESS TEST KINGSLEY SHAW DO Jan 08, 2025 07:22
[2025-01-08] MEDS: ONDANSETRON HCL 4 MG/2 ML VIAL IV PRN (07:45)
--- NOTE | 2025-01-08 08:57 | DVHPN2 ---
Chief Complaints Patient reports: No new complaints, Feels better Nursing reports: No new complaints Objective Vitals Vital Signs Date Time Temp Pulse Resp B/P (MAP) Pulse Ox O2 Delivery O2 Flow Rate FiO2 01/08/25 05:33 83 16 126/83 Medications Current Medications Medications (Trade) Dose Ordered Sig/Margarito Route PRN Reason Start Time Stop Time Status Last Admin Benzocaine (Dermoplast) 1 applic PRN PRN TOP PERINEAL AREA DISCOMFORT 01/07/25 19:45 01/08/25 00:20 Famotidine (Pepcid Injection) 40 mg DAILY PRN IV FOR STOMACH DISTRESS 01/07/25 20:00 01/08/25 00:03 Lactated Ringer's 1,000 ml @ 125 mls/hr Q8H IV 01/07/25 19:45 Lidocaine HCl (Xylocaine) 20 ml ONCE PRN IJ PERINEAL AREA DISCOMFORT 01/07/25 19:45 Misoprostol (Cytotec) 50 mcg Q4HPRN PRN PO CERVICAL RIPENING 01/07/25 21:00 01/08/25 04:30 Nalbuphine HCl (Nubain) 10 mg Q4HP PRN IV MODERATE PAIN (4-6 PAIN SCALE) 01/07/25 19:45 01/08/25 04:32 Ondansetron HCl (Zofran) 4 mg Q6HPRN PRN IV NAUSEA / VOMITING 01/07/25 20:00 01/08/25 07:45 Penicillin G Potassium [id number] units/Dextrose 50 ml @ 100 mls/hr Q4H IV 01/07/25 23:45 Sodium Lauryl Sulfate (Phisoderm) 240 ml PRN PRN TOP PERINEAL AREA DISCOMFORT 01/07/25 19:45 01/08/25 00:20 Terbutaline Sulfate (Brethine Inj) 0.25 mg ONCE PRN SC Uterine tachysystole 01/07/25 20:00 Jerson Morales (Varinder) 1 pad PRN PRN TOP PERINEAL AREA DISCOMFORT 01/07/25 19:45 01/08/25 00:20 Others PELVIC -UNCHNAGED Studies Laboratory Tests 01/07/25 20:00 Test 01/07/25 20:00 Range/Units Serum Glucose 116 H 74-106 mg/dL Ass/Plan Assessment iol FAILED Plan PT IS GIVEN OPTION OF BEING DC HOME SINCE NO CHANGES WILL BE BACK [facility] 9AM FOR INDUCTION SINCE SHE IS REQUESTING INDUCTION RISKS AND COMPL OF IOL D/W PT ALL QUESTIONS ANSWERED PT FULLY UNDERSTANDS AND AGREES WITH PLAN Visit Coding OBGYN Date of Service: Jan 08, 2025 Billing Provider: KINGSLEY SHAW DO DEVOPS SOLUTIONS ARCHITECT Common Visit Codes: [id number] INP/OBS CARE (HIGH) DEVOPS SOLUTIONS ARCHITECT Procedure Codes: 88685-26- NON-STRESS TEST KINGSLEY SHAW DO Jan 08, 2025 08:57
--- NOTE | 2025-01-08 08:58 | DVHDS2 ---
Physician Discharge Progress N Final Diagnosis: IOL FAILED Operations or Procedures: Operations or Procedures NST,LABS Condition on Discharge: Good Disposition: Home Discharge Instructions: Diet: Regular Activity: No Restrictions, As Tolerated Medications: NA Follow Up Care: Specialist: FU IN 2DAYS Discharge Statement: "Patient was advised to return to the ER or call 911 if any headaches, dizziness, shortness of breath, chest pain, abdominal pain, bleeding, fevers, or worsening of medical condition. Patient was counseled about treatment plan, medications, possible side effects, patientverbalized understanding. All questions were answered to the best of my ability. This discharge took greater then 30 minutes in planning, reviewing documentation, counseling the patient, and discussing with other team members." Visit Coding OBGYN Date of Service: Jan 08, 2025 Billing Provider: KINGSLEY SHAW DO GAS METER INSTALLER Common Visit Codes: [id number] INP/OBS CARE (HIGH) GAS METER INSTALLER Procedure Codes: 91590-68- NON-STRESS TEST KINGSLEY SHAW DO Jan 08, 2025 08:58
== END 2025-01-08 09:13 | disposition home or self-care (01) | DRG 833 ==
LOC: LDRP 19:37
PROVIDERS: ADMIT Obstetrics & Gynecology; ATTEND Obstetrics & Gynecology
DX: O13.3 Gestational [pregnancy-induced] hypertension without significant proteinuria, third trimester (principal); O99.013 Anemia complicating pregnancy, third trimester; D50.9 Iron deficiency anemia, unspecified; Z3A.39 39 weeks gestation of pregnancy
CPT/HCPCS: 36415; 59025; 76815; 80053; 80307; 81001; 82570; 84156; 84550; 85025; 85610; 85730; 86780; 86803; 86850; 86900; 86901; 94762; 96360; 96361; 96374; G0378; J2405; J3490; J7060

== ENCOUNTER 2025-01-10 07:17 | Inpatient (IN) | payer OTHER ==
[~2025-01-10] VITALS: Ht 160 cm; Wt 111.1 kg
[2025-01-10] MEDS ORDERED: BUTORPHANOL TARTRATE 2 MG/1 ML VIAL IV PRN ×2 (09:45)
[2025-01-10] MEDS ORDERED: LIDOCAINE 2%HCL (LOCAL ANESTH.) INJ 20ML MDV IJ PRN (09:45)
[2025-01-10 10:59] LABS: Hematocrit 31.1 % (36.0-46.0); Hemoglobin 10.1 g/dL (12.2-16.2); Mean Corpuscular Hemoglobin 24.7 pg (28.0-32.0); Mean Corpuscular Volume 76.1 fL (80.0-100.0); Nucleated Red Blood Cells % 0.1 %
[2025-01-10 11:13] LABS: Albumin 3.9 g/dL (3.2-4.8); Alkaline Phosphatase 100 U/L (46-116); Anion Gap 10 (5-15); Calcium 8.9 mg/dL (8.7-10.4); Carbon Dioxide 24 mmol/L (20-31); Chloride 104 mmol/L (98-107); Glucose 81 mg/dL (74-106); Potassium 3.9 mmol/L (3.5-5.1); Sodium 138 mmol/L (136-145); Total Protein 6.3 g/dL (5.7-8.2)
[2025-01-10 11:15] LABS: Alanine Aminotransferase < 9 U/L (7-40); BUN/Creatinine Ratio 10.9 (10.0-20.0); Bilirubin, Total 0.2 mg/dL (0.2-1.0); Blood Urea Nitrogen < 5 mg/dL (9-23); INR 0.93 (0.9-1.15); Partial Thromboplastin Time 23.3 SEC (24.5-34.5); Prothrombin Time 9.9 sec (9.3-11.8)
--- NOTE | 2025-01-10 11:59 | DVHHP2 ---
OB CC & HPI Date Date of Admission: Jan 10, 2025 Patient Identification: : 4 Para: 3 EDC: Jan 14, 2025 EGA: 39.3 Chief Complaints: Reason for admission: induction of labor Indication for induction: other (PIH per Dr. Steele) History of Present Complaints 30yo IUP@39.3wks presents for scheduled IOL for PIH per Dr. Steele Denies UCs/LOF/VB/CARRASCO/vision changes/RUQ pain. Endorses +FM. PNC: Routine PNC at [facility] OB with Dr. Steele, adequate visits, PNC complicated by PIH. GTT wnl, dating based on 20wk sono, GBS positive. OB hx: x3, first complicated short cervix delivered at 37wks, second preg had PreE, third preg had PPH without blood transfusion, largest baby was 8lbs 6oz. Past Medical History Cardiac: No pertinent Hx Pulmonary: No pertinent Hx Central Nervous System: No pertinent Hx GI: No pertinent Hx Hemotology/Oncology: No pertinent Hx Hepatobiliary: No pertinent Hx Psychiatric: No pertinent Hx Musculoskeletal: No pertinent Hx Rheumotologic: No pertinent Hx Infectious Disease: No peritnent Hx ENT: No pertinent Hx Renal/: No pertinent Hx Endocrine: No pertinent Hx Dermatology: No pertinent Hx Past Surgical History: Other (Breast reduction in 2022) OB History OB History Care: Good Care Ultrasounds: Normal mid trimester US Obstetrical Complications: Other (PIH) Medical Complications: None Allergies: Coded Allergies: NO KNOWN ALLERGIES (Unverified , 12/02/24) Home Meds Reported Medications Vit W/ Ferrous Fumara ( One Daily) Daily Tab, 1 TAB PO DAILY, #90 TAB 3 Refills 12/09/24 Current Medications Current Medications Medications (Trade) Dose Ordered Sig/Margarito Route PRN Reason Start Time Stop Time Status Last Admin Lactated Ringer's 1,000 ml @ 125 mls/hr Q8H IV 01/10/25 09:45 Penicillin G Potassium [id number] units/Dextrose 50 ml @ 100 mls/hr Q4H IV 01/10/25 13:45 Witch Carmen (Tucks) 1 pad PRN PRN TOP PERINEAL AREA DISCOMFORT 01/10/25 09:45 Sodium Lauryl Sulfate (Phisoderm) 240 ml PRN PRN TOP PERINEAL AREA DISCOMFORT 01/10/25 09:45 Benzocaine (Dermoplast) 1 applic PRN PRN TOP PERINEAL AREA DISCOMFORT 01/10/25 09:45 Butorphanol Tartrate (Stadol Injection) 1 mg Q4HPRN PRN IV MODERATE PAIN (4-6 PAIN SCALE) 01/10/25 09:45 Butorphanol Tartrate (Stadol Injection) 2 mg Q4HPRN PRN IV SEVERE PAIN (7-10 PAIN SCALE) 01/10/25 09:45 Misoprostol (Cytotec) 50 mcg Q4HPRN PRN PO CERVICAL RIPENING 01/10/25 09:45 01/10/25 10:31 Lidocaine HCl (Xylocaine) 20 ml ONCE PRN IJ PERINEAL AREA DISCOMFORT 01/10/25 09:45 Family & Social History Family/Social History Past Family/Social History: denies Blood Type: B+ Rubella: immune RPR/VDRL: Negative GBS Status: Positive HBsAG: Negative Review of Systems Constitutional: No symptom reported Ears, Nose, & Throat: No symptom reported Eyes: No symptom reported Pulmonary/Respiratory: No symptom reported Cardiovascular: No symptom reported Gastrointestinal: No symptom reported Genitourinary: No symptom reported Musculoskeletal: No symptom reported Skin: No symptom reported Psychiatric: No symptom reported Endocrine: No symptom reported Hemotologic/Lymphatic: No symptom reported OB Admission Exam Physical Exam Vitals: VSS, see CPN HEENT: TMs Normal, Fontanelles Normal, Nasal Mucosa Normal, Eyes non-injected, Oropharynx Normal, PERRLA, Moist Membranes, EOMI Heart: Rhythm Normal Lungs: Clear Abdomen: Gravid Extremities: Normal Reflexes: Normal Pelvic Exam: SVE by RN: FT/GERTRUDE/LYNNETTE, vertex EFW at [facility]'s office on 01/05/25 per pt: 7lbs 9oz Membranes: Intact Heart Rate: 130's Accelerations: Accelerations Present Decelerations: No Decelerations Prison Variability: Average (6-25) Contractions on Admission: >10 Minutes Apart Intensity: Mild OB Plan Plan Admitting Diagnosis: induction of labor Plan: Induction Induction Methd: Misoprostol protocol Other Plan: A: 30yo IUP@39.3wks Induction of Labor for PIH Category I EFM Intact Membranes GBS positive P: Admit to L&D Informed consent obtained Discussed risks, benefits, alternatives of IOL for PIH with pt. Pt consents to IOL with PO cytotec. monitoring per order Routine labs ordered Pain mgmt PRN Frequent position changes in and out of bed encouraged Limit SVE unless necessary Intrauterine resuscitation PRN Anticipate TRISHA is co-managing care with Dr. Steele. Visit Coding OBGYN Date of Service: Jan 10, 2025 Billing Provider: CÉSAR WELLS CNM SCIENTIST PROPAGATOR Common Visit Codes: [id number] INP/OBS CARE (HIGH) SCIENTIST PROPAGATOR Procedure Codes: 38282-26- NON-STRESS TEST CÉSAR WELLS CNM Jan 10, 2025 11:59
[2025-01-10 12:01] LABS: Urine Protein, UAD 2+ (Negative)
[2025-01-10 12:06] LABS: Amphetamine Screen, Urine Neg (NEGATIVE); Barbiturate Scree,Urine Neg (NEGATIVE); Benzodiazephine Screen, Urine Neg (NEGATIVE); Cannabinoid Screen, Urine Neg (NEGATIVE); Cocaine Screen, Urine Neg (NEGATIVE); Opiate Scree,Urine Neg (NEGATIVE); Phencyclidine Screen, Urine Neg (NEGATIVE)
[2025-01-10] MEDS: CALCIUM CARB 500 MG CHEW TAB PO PRN (14:31)
[2025-01-10] MEDS ORDERED: TERBUTALINE SULFATE 1 MG/ML 1ML VIAL SC PRN (18:45)
--- NOTE | 2025-01-10 18:51 | DVHPN2 ---
CNM Labor Progress Note Date and Time Seen Date Seen: Jan 10, 2025 Time Seen: 18:25 Subjective Patient reports: Feels worse Objective Vital Signs VSS, See CPN Monitoring Method Monitoring Method: External Heart Rate Heart Rate Baseline: 140 Heart Rate Variability: Moderate Presence of FHR Accelerations: Yes Presence of FHR Decelerations: No Changes in Trends of Patterns: No Are all 5 Components of the FH: Yes Contractions Contractions Frequency: Occasional Duration of Contraction: 80 Contractions Intensity: Mild Contractions Resting Tone: Relaxed Membranes Membranes: Intact Vaginal Exam Vag Exam Deferred: No Vaginal Exam Dilation: 4 Vaginal Exam Effacement: 60 Vaginal Exam Station: -2 Vaginal Exam Presentation: VTX Vaginal Exam Show: None Medications Medications - Pitocin: No Medications - Pain Medications: PRN Medication - Epidural: No Medication - Other S/P CYTOTEC X 2 Lab Results Lab Results Current Medications Medications (Trade) Dose Ordered Sig/Margarito Start Time Stop Time Status Last Admin Dose Admin Lactated Ringer's 1,000 ml @ 125 mls/hr Q8H 01/10/25 09:45 Penicillin G Potassium 50 ml @ 100 mls/hr ONCE ONCE 01/10/25 09:45 01/10/25 10:14 DC Penicillin G Potassium [id number] units/Dextrose 50 ml @ 100 mls/hr Q4H 01/10/25 13:45 Witch Carmen (Tucks) 1 pad PRN PRN 01/10/25 09:45 Sodium Lauryl Sulfate (Phisoderm) 240 ml PRN PRN 01/10/25 09:45 Benzocaine (Dermoplast) 1 applic PRN PRN 01/10/25 09:45 Butorphanol Tartrate (Stadol Injection) 1 mg Q4HPRN PRN 01/10/25 09:45 Butorphanol Tartrate (Stadol Injection) 2 mg Q4HPRN PRN 01/10/25 09:45 Misoprostol (Cytotec) 50 mcg Q4HPRN PRN 01/10/25 09:45 01/10/25 18:37 DC 01/10/25 14:32 50 MCG Lidocaine HCl (Xylocaine) 20 ml ONCE PRN 01/10/25 09:45 Calcium Carbonate (Tums) 1,000 mg QIDPRN PRN 01/10/25 13:30 01/10/25 14:31 1,000 MG Famotidine (Pepcid Injection) 20 mg Q12HR 01/10/25 19:00 UNV Laboratory Tests Test 01/10/25 10:03 01/10/25 08:15 Range/Units White Blood Count 6.7 4.4-10.8 10^3/uL Red Blood Count 4.08 4.0-5.20 10^6/uL Hemoglobin 10.1 L 12.2-16.2 g/dL Hematocrit 31.1 L 36.0-46.0 % Mean Corpuscular Volume 76.1 L 80.0-100.0 fL Mean Corpuscular Hemoglobin 24.7 L 28.0-32.0 pg Mean Corpuscular Hemoglobin Concent 32.5 32.0-36.0 g/dL Red Cell Distribution Width 16.6 H 11.8-14.3 % Platelet Count 245 140-450 10^3/uL Mean Platelet Volume 8.4 6.9-10.8 fL Neutrophils (%) (Auto) 69.1 37.0-80.0 % Lymphocytes (%) (Auto) 22.0 10.0-50.0 % Monocytes (%) (Auto) 8.2 0.0-12.0 % Eosinophils (%) (Auto) 0.5 0.0-7.0 % Basophils (%) (Auto) 0.2 0.0-2.0 % Neutrophils # (Auto) 4.6 1.6-8.6 10 ^3/uL Lymphocytes # (Auto) 1.5 0.4-5.4 10 ^3/uL Monocytes # (Auto) 0.6 0-1.3 10 ^3/uL Eosinophils # (Auto) 0 0-0.8 10 ^3/uL Basophils # (Auto) 0 0-0.2 10 ^3/uL Nucleated Red Blood Cells 0.1 % Prothrombin Time 9.9 9.3-11.8 sec Prothrombin Time INR 0.93 0.9-1.15 Activated Partial Thromboplast Time 23.3 L 24.5-34.5 SEC Sodium Level 138 136-145 mmol/L Potassium Level 3.9 3.5-5.1 mmol/L Chloride Level 104 98-107 mmol/L Carbon Dioxide Level 24 20-31 mmol/L Anion Gap 10 5-15 Blood Urea Nitrogen < 5 L 9-23 mg/dL Creatinine 0.46 L 0.550-1.02 mg/dL Glomerular Filtration Rate Calc 131 >90 mL/min BUN/Creatinine Ratio 10.9 10.0-20.0 Serum Glucose 81 74-106 mg/dL Calcium Level 8.9 8.7-10.4 mg/dL Total Bilirubin 0.2 0.2-1.0 mg/dL Aspartate Amino Transferase (AST) 18 13-40 U/L Alanine Aminotransferase (ALT) < 9 7-40 U/L Alkaline Phosphatase 100 46-116 U/L Total Protein 6.3 5.7-8.2 g/dL Albumin 3.9 3.2-4.8 g/dL Treponema pallidum Antibody Non-reactive Negative Hepatitis C Antibody Negative Negative Urine Color Light-yellow Yellow Urine Clarity Turbid H Clear Urine pH 6.5 5.0-9.0 Urine Specific [place] 1.013 1.001-1.035 Urine Protein 2+ H Negative Urine Ketones Negative Negative Urine Blood Negative Negative /uL Urine Nitrite Negative Negative Urine Bilirubin Negative Negative Urine Urobilinogen Normal Negative mg/dL Urine Leukocyte Esterase 2+ Negative /uL Urine RBC 1 0 - 4 /hpf Urine Microscopic WBC 10 H 0-5 /HPF Urine Squamous Epithelial Cells Mod <5 /hpf Urine Bacteria None seen None Seen /hpf Urine Glucose Normal Normal mg/dL Urine Opiates Screen Neg NEGATIVE Urine Fentanyl Screen Neg NEGATIVE Urine Barbiturates Screen Neg NEGATIVE Urine Phencyclidine Screen Neg NEGATIVE Urine Amphetamines Screen Neg NEGATIVE Urine Benzodiazepines Screen Neg NEGATIVE Urine Cocaine Screen Neg NEGATIVE Urine Cannabinoids Screen Neg NEGATIVE Assessment Assessment A: 30yo IUP@39.3wks Induction of Labor for PIH Category I EFM Intact Membranes GBS positive Plan Plan P: Discussed risks, benefits, alternatives of Pitocin Start Penicillin G for GBS treatment monitoring per order Pain mgmt PRN Frequent position changes in and out of bed encouraged Limit SVE unless necessary Intrauterine resuscitation PRN Anticipate TRISHA is co-managing care with Dr. Steele. Plan discussed with: Patient Visit Coding OBGYN Date of Service: Jan 10, 2025 Billing Provider: CÉSAR WELLS CNM SUSTAINABILITY SPECIALIST Common Visit Codes: [id number] INP/OBS CARE(HIGH) CÉSAR WELLS CNM Jan 10, 2025 18:51
[2025-01-10] MEDS: FAMOTIDINE (10MG/ML) 2ML VL IV SCH (19:07)
[2025-01-10] MEDS ORDERED: LIDOCAINE HCL 2 %PF INJ 10ML AMP IJ ONE (19:15)
[2025-01-10] MEDS ORDERED: NALOXONE HCL 0.4 MG/ML VIAL IV ONE (19:15)
[2025-01-10] MEDS ORDERED: LACTATED RINGER'S 1,000 ML IV ONE (19:15)
[2025-01-10] MEDS: LACTATED RINGER'S 1,000 ML IV SCH (19:54)
[2025-01-10] MEDS: LIDOCAINE HCL 2 %PF INJ 10ML AMP IJ ONE (20:09)
[2025-01-10] MEDS: PENICILLIN G POT 5MIL/D5 50ML 50 ML IV ONE (20:18)
[2025-01-10] MEDS: ROPIVACAINE HCL 100 ML ONE (20:37)
[2025-01-10] MEDS: LACT. RINGERS/OXYTOCIN 20UNITS 1,000 ML IV SCH (22:00)
[2025-01-11] MEDS: PENICILLIN G POTASSIUM 2,500,000 UNITS in D5W 5% 50 ML IV SCH (00:42)
--- NOTE | 2025-01-11 01:41 | DVHPN2 ---
CNM Labor Progress Note Date and Time Seen Date Seen: Jan 11, 2025 Time Seen: 01:35 Subjective Subjective Comment Pt is comfortable with epidural. Objective Vital Signs VSS, see CPN Monitoring Method Monitoring Method: External Heart Rate Heart Rate Baseline: 130 Heart Rate Variability: Moderate Presence of FHR Accelerations: Yes Presence of FHR Decelerations: No Are all 5 Components of the FH: Yes Contractions Contractions Frequency: Other (q2-3 min) Duration of Contraction: 60 Contractions Intensity: Moderate Contractions Resting Tone: Relaxed Membranes Membranes: Ruptured (SROM at 0046) Amniotic Fluid Color: Clear Vaginal Exam Vag Exam Deferred: Yes (SVE by RN: /-2) Medications Medications - Pitocin: Yes (8mu) Medication - Epidural: Yes Lab Results Lab Results Current Medications Medications (Trade) Dose Ordered Sig/Margarito Start Time Stop Time Status Last Admin Dose Admin Lactated Ringer's 1,000 ml @ 125 mls/hr Q8H 01/10/25 09:45 01/10/25 19:54 125 MLS/HR Penicillin G Potassium 50 ml @ 100 mls/hr ONCE ONCE 01/10/25 09:45 01/10/25 10:14 DC 01/10/25 20:18 100 MLS/HR Penicillin G Potassium [id number] units/Dextrose 50 ml @ 100 mls/hr Q4H 01/10/25 13:45 01/11/25 00:42 100 MLS/HR Jerson Morales (Tucks) 1 pad PRN PRN 01/10/25 09:45 Sodium Lauryl Sulfate (Phisoderm) 240 ml PRN PRN 01/10/25 09:45 Benzocaine (Dermoplast) 1 applic PRN PRN 01/10/25 09:45 Butorphanol Tartrate (Stadol Injection) 1 mg Q4HPRN PRN 01/10/25 09:45 Butorphanol Tartrate (Stadol Injection) 2 mg Q4HPRN PRN 01/10/25 09:45 Misoprostol (Cytotec) 50 mcg Q4HPRN PRN 01/10/25 09:45 01/10/25 18:37 DC 01/10/25 14:32 50 MCG Lidocaine HCl (Xylocaine) 20 ml ONCE PRN 01/10/25 09:45 Calcium Carbonate (Tums) 1,000 mg QIDPRN PRN 01/10/25 13:30 01/10/25 14:31 1,000 MG Famotidine (Pepcid Injection) 20 mg Q12HR 01/10/25 19:00 01/10/25 19:07 20 MG Oxytocin 1,000 ml @ 6 ml/hr Q24H 01/10/25 18:45 01/10/25 22:00 3 ML/HR Terbutaline Sulfate (Brethine Inj) 0.25 mg ONCE PRN 01/10/25 18:45 Oxytocin 500 ml @ 999 mls/hr Q31M ONCE 01/10/25 18:45 01/10/25 19:15 DC Oxytocin 500 ml @ 125 mls/hr Q4H ONCE 01/10/25 19:15 01/10/25 23:14 DC Naloxone HCl (Narcan) 0.2 mg PRN ONCE 01/10/25 19:15 01/10/25 20:13 DC Ephedrine Sulfate (ePHEDrine SULFATE) 10 mg PRN ONCE 01/10/25 19:15 01/10/25 20:13 DC 01/10/25 20:46 10 MG Lidocaine HCl (Xylocaine-Pf 2% Injection) 10 ml ONCE ONCE 01/10/25 19:15 01/10/25 20:13 DC Lactated Ringer's 1,000 ml @ 1,000 mls/hr Q1H ONCE 01/10/25 19:15 01/10/25 20:14 DC Laboratory Tests Test 01/10/25 10:03 01/10/25 08:15 Range/Units White Blood Count 6.7 4.4-10.8 10^3/uL Red Blood Count 4.08 4.0-5.20 10^6/uL Hemoglobin 10.1 L 12.2-16.2 g/dL Hematocrit 31.1 L 36.0-46.0 % Mean Corpuscular Volume 76.1 L 80.0-100.0 fL Mean Corpuscular Hemoglobin 24.7 L 28.0-32.0 pg Mean Corpuscular Hemoglobin Concent 32.5 32.0-36.0 g/dL Red Cell Distribution Width 16.6 H 11.8-14.3 % Platelet Count 245 140-450 10^3/uL Mean Platelet Volume 8.4 6.9-10.8 fL Neutrophils (%) (Auto) 69.1 37.0-80.0 % Lymphocytes (%) (Auto) 22.0 10.0-50.0 % Monocytes (%) (Auto) 8.2 0.0-12.0 % Eosinophils (%) (Auto) 0.5 0.0-7.0 % Basophils (%) (Auto) 0.2 0.0-2.0 % Neutrophils # (Auto) 4.6 1.6-8.6 10 ^3/uL Lymphocytes # (Auto) 1.5 0.4-5.4 10 ^3/uL Monocytes # (Auto) 0.6 0-1.3 10 ^3/uL Eosinophils # (Auto) 0 0-0.8 10 ^3/uL Basophils # (Auto) 0 0-0.2 10 ^3/uL Nucleated Red Blood Cells 0.1 % Prothrombin Time 9.9 9.3-11.8 sec Prothrombin Time INR 0.93 0.9-1.15 Activated Partial Thromboplast Time 23.3 L 24.5-34.5 SEC Sodium Level 138 136-145 mmol/L Potassium Level 3.9 3.5-5.1 mmol/L Chloride Level 104 98-107 mmol/L Carbon Dioxide Level 24 20-31 mmol/L Anion Gap 10 5-15 Blood Urea Nitrogen < 5 L 9-23 mg/dL Creatinine 0.46 L 0.550-1.02 mg/dL Glomerular Filtration Rate Calc 131 >90 mL/min BUN/Creatinine Ratio 10.9 10.0-20.0 Serum Glucose 81 74-106 mg/dL Calcium Level 8.9 8.7-10.4 mg/dL Total Bilirubin 0.2 0.2-1.0 mg/dL Aspartate Amino Transferase (AST) 18 13-40 U/L Alanine Aminotransferase (ALT) < 9 7-40 U/L Alkaline Phosphatase 100 46-116 U/L Total Protein 6.3 5.7-8.2 g/dL Albumin 3.9 3.2-4.8 g/dL Treponema pallidum Antibody Non-reactive Negative Hepatitis C Antibody Negative Negative Urine Color Light-yellow Yellow Urine Clarity Turbid H Clear Urine pH 6.5 5.0-9.0 Urine Specific [place] 1.013 1.001-1.035 Urine Protein 2+ H Negative Urine Ketones Negative Negative Urine Blood Negative Negative /uL Urine Nitrite Negative Negative Urine Bilirubin Negative Negative Urine Urobilinogen Normal Negative mg/dL Urine Leukocyte Esterase 2+ Negative /uL Urine RBC 1 0 - 4 /hpf Urine Microscopic WBC 10 H 0-5 /HPF Urine Squamous Epithelial Cells Mod <5 /hpf Urine Bacteria None seen None Seen /hpf Urine Glucose Normal Normal mg/dL Urine Opiates Screen Neg NEGATIVE Urine Fentanyl Screen Neg NEGATIVE Urine Barbiturates Screen Neg NEGATIVE Urine Phencyclidine Screen Neg NEGATIVE Urine Amphetamines Screen Neg NEGATIVE Urine Benzodiazepines Screen Neg NEGATIVE Urine Cocaine Screen Neg NEGATIVE Urine Cannabinoids Screen Neg NEGATIVE Assessment Assessment A: 30yo IUP@39.4wks Induction of Labor for PIH Category I EFM SROM, clear fluid GBS positive Plan Plan Continue with IV pitocin titration per order Continue with Penicillin G for GBS treatment monitoring per order Pain mgmt- epidural in place Frequent position changes in bed encouraged Limit SVE unless necessary Intrauterine resuscitation PRN Anticipate TRISHA is co-managing care with Dr. Steele. Plan discussed with: Patient Visit Coding OBGYN Date of Service: Jan 11, 2025 Billing Provider: CÉSAR WELLS CNM SLATE CUTTER Common Visit Codes: [id number] INP/OBS CARE(HIGH) CÉSAR WELLS CNM Jan 11, 2025 01:41
[2025-01-11] MEDS ORDERED: ACETAMINOPHEN 325 MG TAB PO PRN ×2 (03:15→04:30)
[2025-01-11] MEDS ORDERED: METHYLERGONOVINE MALEATE 0.2 MG/ML AMP IM PRN (03:15)
[2025-01-11] MEDS ORDERED: CARBOPROST TROMETHAMINE 250 MCG/1ML VIAL IM PRN (03:15)
[2025-01-11] MEDS ORDERED: ONDANSETRON HCL 4 MG/2 ML VIAL IV PRN (03:15)
[2025-01-11] MEDS: DERMOPLAST 60ML BOTTLE TOP PRN (04:12)
[2025-01-11] MEDS: PHISODERM TOP SOLN 240ML BTL TOP PRN (04:13)
[2025-01-11] MEDS: WITCH HAZEL-GLYCERIN PAD TOP PRN (04:13)
[2025-01-11] MEDS: LACT. RINGERS/OXYTOCIN 20UNITS 500 ML IV ONE ×2 (04:14)
--- NOTE | 2025-01-11 04:28 | LDN2 ---
Labor and Delivery Note Date 01/11/25 Age 30 4 Para 4 NOW AB 0 EDC 01/14/25 EGA 39.4 Diagnosis IOL for PIH then Vaginal Delivery: VTX Vacuum Assisted: No Placenta: Spontaneous Sex: Female Weight pending Apgars 9 Nuchal Cord Transected: No Amniotic Fluid: Clear Anesthesia Epidural Episiotomy: No Extension: No Repaired with N/A EBL 200 Labs Blood Bank 01/10/25 10:03: Blood Type B POSITIVE Complications None Conditions Stable Eviscerator Somu Comments/Significant Med Michael At 0333 this 30yo now delivered a viable Female by w/ APGARS 01/24. SKYLA with loose Nuchal x1 with cord reduced after . placed skin to skin on pts chest. Cord clamped and cut after pulsation ceased. Cord blood sent. Pitocin IV bolus started. Intact 3-vessel cord placenta delivered spontaneously, Nilda. Placenta sent to pathology. Patient had epidural. Cervix/vagina inspected (intact) with intact perineum/labia. Fundus at U, firm, midline, and light lochia. QBL 200ml. VSS. Count correct x2. Patient to care and baby to couplet care, both stable. Visit Coding OBGYN Date of Service: Jan 11, 2025 Billing Provider: CÉSAR WELLS CNM WELL TENDER Common Visit Codes: PROCEDURE ONLY WELL TENDER Procedure Codes: [id number] DEL INCLUDING CÉSAR WELLS CNM Jan 11, 2025 04:28
[2025-01-11] MEDS ORDERED: IBUPROFEN 600 MG TAB PO PRN (04:30)
[2025-01-11] MEDS ORDERED: ONDANSETRON ODT 4 MG TAB PO PRN (06:30)
[2025-01-11] MEDS ORDERED: TRANEXAMIC ACID 1,000 mg/10ml INJ VIAL IV ONE (07:03)
[2025-01-11 07:27] VITALS: BP 132/68; PULSE 88; RESP 16; TEMP 98.2; O2SAT 100
[2025-01-11] MEDS ORDERED: DOCUSATE SOD 100 MG CAP PO SCH (10:00)
[2025-01-11] MEDS ORDERED: DIPHENOXYLATE W/ATROPINE 2.5 MG TAB PO SCH (10:00)
[2025-01-11] MEDS: PRENATAL VITAMIN TAB PO SCH (10:28)
[2025-01-11] MEDS: IBUPROFEN 600 MG TAB PO PRN (10:42)
[2025-01-11 10:50] VITALS: BP 126/75; PULSE 86; RESP 18; TEMP 98.1; O2SAT 100
[2025-01-11] MEDS ORDERED: IBUPROFEN 800 MG TAB PO SCH (12:00)
[2025-01-11 18:30] VITALS: BP 120/69; PULSE 101; RESP 16; TEMP 98.6; O2SAT 96
[2025-01-11] MEDS: ACETAMINOPHEN 325 MG TAB PO PRN (19:07)
[2025-01-11] MEDS: DOCUSATE SOD 100 MG CAP PO SCH (22:05)
[2025-01-11 22:30] VITALS: BP 133/77; PULSE 84; RESP 17; TEMP 98.1; O2SAT 96
--- NOTE | 2025-01-12 01:21 | DVHPN2 ---
Progress Note Date Seen: Jan 12, 2025 Subjective Patient sitting up in bed, baby. States she is eager to return home as soon as she can SUBJECTIVE -Lochia minimal -Tolerating regular diet well. -Ambulating and voiding well w/o feeling lightheaded or dizzy. -Passing flatus but no BM yet -Breast feeding. - Contraceptive plan: Partner to get vasectomy -Desires and requests to be discharged home today (01/12) vital signs Vital Sign Date Time Temp Pulse Resp B/P (MAP) Pulse Ox O2 Delivery O2 Flow Rate FiO2 01/11/25 22:30 98.1 84 17 133/77 (95) 96 98.1 01/11/25 18:30 Room Air Total Intake and Output 01/11/25 01/11/25 01/12/25 15:00 23:00 07:00 Output Total 1000 ml Balance -1000 ml medications Current Medications Medications Dose Ordered Sig/Margarito Route Start Time Stop Time Status Last Admin Dose Admin Jerson Morales 1 pad PRN PRN TOP 01/10/25 09:45 01/11/25 04:13 1 PAD Sodium Lauryl Sulfate 240 ml PRN PRN TOP 01/10/25 09:45 01/11/25 04:13 240 ML Benzocaine 1 applic PRN PRN TOP 01/10/25 09:45 01/11/25 04:12 1 APPLIC Prenat Multivit/ Griffith/Iron/Folic Ac 1 DAILY PO 01/11/25 10:00 01/11/25 10:28 1 Acetaminophen 650 mg Q4HP PRN PO 01/11/25 06:30 01/11/25 19:07 650 MG Docusate Sodium 200 mg HS PO 01/11/25 22:00 01/11/25 22:05 200 MG Ibuprofen 600 mg Q6HPRN PRN PO 01/11/25 10:00 01/11/25 23:36 600 MG laboratory and microbiology Laboratory Tests 01/10/25 10:03 Test 01/10/25 10:03 Range/Units Serum Glucose 81 74-106 mg/dL Objective OBJECTIVE -A&O x4. No apparent distress. Affect appropriate -Afebrile, VSS -Chest: heart and lung sounds normal. -Breasts: Nipples intact w/o cracks or soreness -Abdomen: normal BS, soft, non-tender, no rebound or guarding, fundus firm @ U- 1, lochia minimal -Perineum:- no edema, or erythema, Incision site with sutures intact, edges in good approximation. -Extremities: no edema or tenderness Problems(with codes): (1) (normal spontaneous vaginal delivery) (2) Intact perineum Assessment/Plan ASSESSMENT -30 yo now ppd #1 s/p doing well. -Blood Type: B+ -Breast feeding -Rubella Immune PLAN -Continue pain management with oral medications as previously ordered -Increase fluid intake and fiber in diet to promote regular bowel movements, Laxative PRN -Encouraged patient to continue taking vitamin and iron -Educated patient on self care and warning signs of PPH, PPD, and pre-eclampsia. Answered all pt questions and concerns -Continue routine care and anticipate discharge today Plan discussed with: Patient Visit Coding OBGYN Date of Service: Jan 12, 2025 Billing Provider: KALEB HERNANDEZ CNM ZINC ETCHER Common Visit Codes: [id number] INP/OBS CARE(HIGH) KALEB HERNANDEZ CNM Jan 12, 2025 01:21
--- NOTE | 2025-01-12 01:22 | DVHDS2 ---
Obstetrics Discharge Summary Obstetrics Discharge Summary Date of Admission: Jan 10, 2025 Date of Discharge: Jan 12, 2025 Reason For Admission: Induction of Labor Operative Complicat: None Discharge Diagnosis: Term -Delivered Discharge Information: Activity (Unrestricted. Advance as tolerated. Balance activities with rest periods. No heavy lifting, pushing or straining. Pelvic rest x 6 weeks), Diet (Routine), Medications (Ibuprofen 600mg every 6 hours as needed for pain. Colace 100mg twice a day as needed to keep bowel movements soft and prevent constipation. Continue Vitamin and iron), Discharge to (Home), Discarge date (01/12/25) Discharge Care Plan Instructions - self care instructions given - emergency signs and symptoms including but not limited to pre-eclampsia precautions and signs of infection, PPH & of PPD reviewed with patient. -Follow up with OB Provider in 2 weeks and again at 6 weeks Visit Coding OBGYN Date of Service: Jan 12, 2025 Billing Provider: KALEB HERNANDEZ CNM TITLE CURATIVE SPECIALIST Common Visit Codes: [id number]-EIY/OBS DISCH DAY >30MIN KALEB HERNANDEZ CNM Jan 12, 2025 01:22
[2025-01-12] MEDS ORDERED: IBU600T PO (01:24)
[2025-01-12] MEDS ORDERED: DOCU-94 PO (01:24)
--- NOTE | 2025-01-12 01:26 | DVHDS2 ---
ASSESSMENT ASSESSMENT Hospital Course Adelina Tijerina was admitted on 01/10/25 at 39w4d for IOL for PIH. Patient given miso PO x2 and pitocin. Got labor epidural for pain relief. She progressed to 2nd stage of labor and had a over intact perineum Normal course; meeting milestones w/o any problem or complications. Assessment IUP at 39+ weeks intact perineum Problems: (1) (normal spontaneous vaginal delivery) (2) Intact perineum KALEB HERNANDEZ CNM Jan 12, 2025 01:26
[2025-01-12 03:00] VITALS: BP 122/69; PULSE 75; RESP 16; TEMP 98; O2SAT 99
[2025-01-12 05:39] LABS: Hematocrit 26.1 % (36.0-46.0); Hemoglobin 8.5 g/dL (12.2-16.2); Mean Corpuscular Hemoglobin 24.9 pg (28.0-32.0); Mean Corpuscular Volume 76.3 fL (80.0-100.0); Nucleated Red Blood Cells % 0.0 %
[2025-01-12 07:26] VITALS: BP 122/84; PULSE 87; RESP 16; TEMP 98.1; O2SAT 100
[2025-01-12 10:47] VITALS: BP 134/63; PULSE 85; RESP 16; TEMP 98.6; O2SAT 99
== END 2025-01-12 13:35 | disposition home or self-care (01) | DRG 807 ==
LOC: PREOBSVTOIN 07:17 → LDRP 09:13
PROVIDERS: ADMIT Obstetrics & Gynecology; ATTEND Obstetrics & Gynecology
PROC: 10E0XZZ Delivery of Products of Conception, External Approach (ICD-10-PCS; principal; 2025-01-11)
PROC: 3E033VJ Introduction of Other Hormone into Peripheral Vein, Percutaneous Approach (ICD-10-PCS; 2025-01-11)
DX: O13.4 Gestational [pregnancy-induced] hypertension without significant proteinuria, complicating childbirth (principal); Z37.0 Single live birth; Z3A.39 39 weeks gestation of pregnancy; O99.824 Streptococcus B carrier state complicating childbirth; O69.81X0 Labor and delivery complicated by cord around neck, without compression, not applicable or unspecified
CPT/HCPCS: 36415; 59025; 59409; 62282; 80053; 80307; 81001; 81002; 85025; 85610; 85730; 86780; 86803; 86850; 86900; 86901; 94760; 94762; 96360; 96361; 96365; 96366; 96374; 96375; A4344; G0378; J2540; J2590; J3490; J7060

== ENCOUNTER 2025-01-23 11:36 | Emergency (ER) | payer OTHER ==
[~2025-01-23] VITALS: Ht 160 cm; Wt 103.1 kg
[~2025-01-23 11:36] MED LIST changes: +DOCU-94 PO; +IBU600T PO
[2025-01-23 11:38] VITALS: TEMP 98.1
--- NOTE | 2025-01-23 12:29 | ED.PDOC ---
GI ASSESSMENT HPI Comments 30y F with recent admission here on 01/10/2025 for induction of labor due to -induced hypertension, status post vaginal delivery who presents to the ED for chief complaint of abdominal pain. Pt states she has been having epigastric abdominal pain since yesterday afternoon. Pt states her pain is intermittent, non-radiating, with noted exacerbation of pain with movement and after eating with no relieving factors. Pt has associated nausea, chills and diarrhea. Pt states she developed vaginal bleeding last night, associated with lower abdominal pain. She states the bleeding is intermittent, dark red and moderate. She is not bleeding currently. Pt otherwise denies any changes to diet or recent sick contacts. Pt has stable vitals with BP 124/74, 02 sat 99% on room air, RR 15, heart rate 96 and temp of 98.1 F. Pt denies any other symptoms at this time. Chief Complaint: Abdominal Pain Time Seen by MD: 12:34 Reviewed Notes: Medications, Allergies Allergies: Coded Allergies: NO KNOWN ALLERGIES (Unverified , 12/02/24) Home Meds Active Scripts Docusate Sodium (Colace) 100 Mg Cap, 1 CAP PO BID, #60 CAP 2 Refills Prov:KALEB HERNANDEZ CN 01/12/25 Ibuprofen Micronized (MOTRIN TABLET) 600 Mg Tb, 600 MG PO Q6HPRN PRN for 20 Days, #80 TAB Prov:KALEB HERNANDEZ [facility] 01/12/25 Reported Medications Vit W/ Ferrous Fumara ( One Daily) Daily Tab, 1 TAB PO DAILY, #90 TAB 3 Refills 12/09/24 Information Source: Patient Mode of Arrival: Ambulatory Past Medical History PAST MEDICAL HISTORY: Denies Surgical History: ZYGLO INSPECTOR History: Other (Recent admission for induction of labor, recent vaginal delivery 01/10/25) Family History Family History: Reviewed,noncontributory to illness Social History Smoker: Non-Smoker Alcohol: Denies ETOH Use Drugs: Denies Drug Use Lives In: Home All Other Systems: Reviewed and Negative (see HPI) Physical Exam General Appearance: No Apparent Distress HEENT: Other (Pupils and face symmetric. Moist mucous membranes.) Neck: Full Range of Motion, Normal Inspection Respiratory: Lungs Clear, No Accessory Muscle Use, No Respiratory Distress, Normal Breath Sounds Cardiovascular: No Edema, No JVD, Regular Rate/Rhythm Breast Exam: Deferred Gastrointestinal: Non Tender, Soft Genitalia: Deferred Pelvic: Deferred Rectal: Deferred Extremities: Normal inspection, Normal range of motion, Non-tender, No pedal edema Neurologic: Alert (Oriented x4), Normal Affect, Normal Mood, Other (Ambulatory) Cerebellar Function: NOT DONE Reflexes: NOT DONE Skin: Dry, Normal Color, Warm Lymphatic: NOT DONE Was a procedure done? Was a procedure done?: No GI differential Dx Differential Diagnosis: Constipation, Esophagitis, Gastritis/PUD, Gastroenteritis, Pancreatitis, UTI, Dehydration, Electrolyte Imbalance, Bacterial, Viral, Stress Ulcer Other Differential Diagnosis Endometritis, anemia, retained products of conception, among others X-Ray, Labs, Meds, VS Vital Signs Date Time Temp Pulse Resp B/P (MAP) Pulse Ox O2 Delivery O2 Flow Rate FiO2 01/23/25 17:58 97 18 106/79 (88) 97 01/23/25 11:38 98.1 96 15 124/74 99 98.1 Lab Test 01/23/25 13:05 01/23/25 12:10 Range/Units White Blood Count 5.7 4.4-10.8 10^3/uL Red Blood Count 4.89 4.0-5.20 10^6/uL Hemoglobin 12.0 L 12.2-16.2 g/dL Hematocrit 36.9 36.0-46.0 % Mean Corpuscular Volume 75.5 L 80.0-100.0 fL Mean Corpuscular Hemoglobin 24.5 L 28.0-32.0 pg Mean Corpuscular Hemoglobin Concent 32.4 32.0-36.0 g/dL Red Cell Distribution Width 18.1 H 11.8-14.3 % Platelet Count 390 140-450 10^3/uL Mean Platelet Volume 7.1 6.9-10.8 fL Neutrophils (%) (Auto) 65.2 37.0-80.0 % Lymphocytes (%) (Auto) 26.1 10.0-50.0 % Monocytes (%) (Auto) 6.5 0.0-12.0 % Eosinophils (%) (Auto) 1.9 0.0-7.0 % Basophils (%) (Auto) 0.3 0.0-2.0 % Neutrophils # (Auto) 3.7 1.6-8.6 10 ^3/uL Lymphocytes # (Auto) 1.5 0.4-5.4 10 ^3/uL Monocytes # (Auto) 0.4 0-1.3 10 ^3/uL Eosinophils # (Auto) 0.1 0-0.8 10 ^3/uL Basophils # (Auto) 0 0-0.2 10 ^3/uL Nucleated Red Blood Cells 0.0 % Sodium Level 140 136-145 mmol/L Potassium Level 4.1 3.5-5.1 mmol/L Chloride Level 103 98-107 mmol/L Carbon Dioxide Level 27 20-31 mmol/L Anion Gap 10 5-15 Blood Urea Nitrogen 7 L 9-23 mg/dL Creatinine 0.58 0.550-1.02 mg/dL Glomerular Filtration Rate Calc 124 >90 mL/min BUN/Creatinine Ratio 12.1 10.0-20.0 Serum Glucose 99 74-106 mg/dL Calcium Level 9.4 8.7-10.4 mg/dL Lipase 49 12-53 U/L Beta HCG, Quantitative 1.8 1.5-4.2 mIU/mL Urine Color Colorless Yellow Urine Clarity Turbid H Clear Urine pH 6.5 5.0-9.0 Urine Specific [place] 1.011 1.001-1.035 Urine Protein Trace H Negative Urine Ketones Negative Negative Urine Blood 3+ H Negative /uL Urine Nitrite Negative Negative Urine Bilirubin Negative Negative Urine Urobilinogen Normal Negative mg/dL Urine Leukocyte Esterase 3+ Negative /uL Urine RBC 1 0 - 4 /hpf Urine Microscopic WBC 37 H 0-5 /HPF Urine Squamous Epithelial Cells Few <5 /hpf Urine Bacteria Few H None Seen /hpf Urine Glucose Normal Normal mg/dL [place] [id number] Ph: [phone] DIAGNOSTIC IMAGING Diagnostic Imaging Report : [id number] Signed PATIENT: JAVIER IBANEZ ACCT: [id number] UNIT: [id number] : 1995 LOC: ER ROOM / BED: / AGE / SEX: 30 / F ADM STATUS: REG ER SERVICE 1151 ORDERING PHYSICIAN: TIFFANY CASAS MD PROCEDURE(s): PELUS - PELVIC REASON: pain/vb 12d post r/o ret POC ORDER NUMBER(s): [id number], ACCESSION NUMBER(s): [id number] INDICATION: pain/vb 12d post r/o ret POC TECHNIQUE: Multiple real-time grayscale transabdominal sonographic images along with color and duplex Doppler of the uterus and ovaries were obtained. COMPARISON: None FINDINGS: The uterus measures 12 x 9 x 7 cm. The endometrial stripe measures 2.6 cm. The right ovary measures 3 x 3 x 3 cm. The left ovary measures 3 x 1 x 3 cm. Subsequent color and duplex Doppler interrogation of the ovaries demonstrated symmetric vascular flow to both ovaries, though this does not exclude the possibility of torsion due to the dual blood supply. IMPRESSION: 1. Fluid in the endometrium with debris seen, likely representing hemorrhage. ATED BY: CALEB JIMENEZ MD DICTATED DATE/TIME: 01/23/25 1310 SIGNED BY: CALEB JIMENEZ MD SIGNED DATE/TIME: 01/23/25 1310 CC: PROCEDURE(s): ABPL - CT AB PEL WO CON-NO ORAL OR IV REASON: upper abd pain, n/v ORDER NUMBER(s): [id number], ACCESSION NUMBER(s): [id number] EXAM: CT CT AB PEL WO CON-NO ORAL OR IV INDICATION: upper abd pain, n/v TECHNIQUE: Volumetric multidetector CT images of the abdomen and pelvis were obtained without contrast. All CT scans at this facility use dose modulation, iterative reconstruction, and/or weight based dosing when appropriate to reduce radiation dose to as low as reasonably achievable. COMPARISON: None FINDINGS: [LOWER CHEST]: The partially visualized lung bases are clear without a pleural effusion. The cardiac size is normal without pericardial effusion. question slight asymmetric thickening of the right breast. [LIVER]: Normal hepatic size without suspicious focal lesion. [GALLBLADDER AND BILIARY TREE]: No cholelithiasis. [SPLEEN]: Unremarkable. [PANCREAS]: Unremarkable. [ADRENAL GLANDS]: Unremarkable [KIDNEYS]: No hydronephrosis. No nephroureterolithiasis. No suspicious focal lesion. [BLADDER]: Unremarkable for the degree distention. [REPRODUCTIVE ORGANS]: Enlargement of the uterus compatible with the given history of post gravid state. No soft tissue emphysema along the endometrial canal. [BOWEL/MESENTERY]: Stomach is normal. No CT evidence of bowel obstruction. normal appendix. [ASCITES]: Absent [LYMPHADENOPATHY]: No pathologically enlarged lymph nodes by CT size criteria [VASCULATURE]: No aneurysmal dilatation. [ABDOMINAL WALL]: Unremarkable. [MUSCULOSKELETAL]: No acute fracture or aggressive focal osseous lesion. Multifocal degenerative change of the visualized spine. IMPRESSION: 1. No CT evidence of an acute abdominal/pelvic process. 2. Post gravid uterus. 3. Asymmetric right breast skin thickening correlate with physical exam. Underlying cellulitis not excluded. 4. No hydronephrosis or nephroureterolithiasis. Normal appendix X-Ray, Labs, Meds, VS Comment 30-year-old female with a history of recent vaginal delivery on 01/10/2025 complaining of epigastric pain, lower abdominal/pelvic pain and vaginal bleeding Vitals unremarkable Exam remarkable for epigastric and lower abdominal tenderness to palpation Rhythm strip independently interpreted by me: Sinus rhythm, rate 96, no ectopy. Pelvic ultrasound IMPRESSION: 1. Fluid in the endometrium with debris seen, likely representing hemorrhage. CT abdomen and pelvis IMPRESSION: 1. No CT evidence of an acute abdominal/pelvic process. 2. Post gravid uterus. 3. Asymmetric right breast skin thickening correlate with physical exam. Underlying cellulitis not excluded. 4. No hydronephrosis or nephroureterolithiasis. Normal appendix CBC, basic metabolic panel unremarkable. Serum quantitative hCG 1.8. UA abnorm al consistent with UTI Patient evaluated in the ED by Dr. Murray with the following recommendations: Retained clots possible membranes status post Plan Outpatient management Cytotec 200 mcg insert 4 tablets vaginally in ER prior to discharge patient instructed to take Advil or Motrin as needed p.r.n. pain or cramps at home. Follow up doctor Ivette prn or 2 weeks; return to ER NPO if significant heavy prolonged bleeding uncontrolled pain decreased level of consciousness And treated with the following in the ED: 1 L 0.9 normal saline IV bolus, Tylenol 1 g p.o., Zofran 4 mg IV, Protonix 40 mg IV, Rocephin 1 g IV, Cytotec 200 mcg intravaginally. On re-evaluation, patient was resting comfortably with stable vitals. She is hemodynamically stable. Appears stable for discharge with close outpatient follow-up with doctor Ivette. Rx Keflex, ibuprofen, Zofran Time of 1ST Reevaluation: 19:33 Reevaluation 1ST: Improved Patient Education/Counseling: Diagnosis, Treatment Family Education/Counseling: No Family Present SEPSIS Sepsis Screen Date sepsis recognized/suspect: Jan 23, 2025 Time Sepsis recognized/suspect: 1141 Recent Procedure: No On Antibiotic Therapy: No Respiratory Rate >20: No Heart Rate >90: No Temp<36 C (96.8 F) or >38.3 C: No SBP <90 or MAP <65 mmHG: No New Acute Mental Status Change: No Is the patient on CPAP, BIPAP,: No Physician Orders Pelvic (01/23/25 11:51) Ct Ab Pel Wo Con-No Oral Or Iv (01/23/25 12:21) * Wildlife Conservation Officer Consultation (01/23/25 14:42) Vital Signs Date Time Temp Pulse Resp B/P (MAP) Pulse Ox O2 Delivery O2 Flow Rate FiO2 01/23/25 17:58 97 18 106/79 (88) 97 01/23/25 11:38 98.1 96 15 124/74 99 98.1 Laboratory Tests Test 01/23/25 13:05 White Blood Count 5.7 10^3/uL (4.4-10.8) Departure 1 Departure Time of Disposition: 19:30 Impression: Primary Impression: Delayed hemorrhage Additional Impression: UTI (urinary tract infection) Qualified Codes: N39.0 - Urinary tract infection, site not specified; R31.9 - Hematuria, unspecified Disposition: 01 HOME / SELF CARE / HOMELESS Condition: Stable Additional Instructions: Your blood tests were unremarkable. Your urine test showed you have a urinary tract infection. I have prescribed antibiotics, pain medication, and medication for nausea. These are all safe for . Follow-up with Dr. Steele in 2 weeks or earlier if needed. Return to ER for persistent or worsening symptoms. e-Prescriptions Ondansetron Odt 4MG Tab (ZOFRAN PO) 4 Mg Tb 4 MG PO TID PRN, #20 TAB Prn nausea/vomiting ODT TAB-DISSOLVE IN MOUTH, THEN SWALLOW Prov: TIFFANY CASAS MD 01/23/25 Acetaminophen (Tylenol Extra Strength) 500 Mg Tab 1000 MG PO Q6HP PRN, #30 TAB Prn pain Prov: TIFFANY CASAS MD 01/23/25 Ibuprofen Micronized (Ibuprofen) 600 Mg Tab 600 MG PO Q6HP PRN, #30 TAB Prn pain. Take with food. Prov: TIFFANY CASAS MD 01/23/25 Cephalexin Monohydrate (Cephalexin) 500 Mg Cap 1 CAP PO QID for 10 Days, #40 CAP Prov: TIFFANY CASAS MD 01/23/25 Discharged With: Relative Critical Care Note Critical Care Time?: No Stability Stability form required: No Heart Score Heart Score: Heart Score Response (Comments) Value History N/A 0 EKG N/A 0 Age N/A 0 Risk Factors N/A 0 Troponin N/A 0 Total 0 I personally scribed for TIFFANY CASAS MD ([email or web address]) on 01/23/25 at 12:29. Electronically submitted by Tasia Osborne ([facility]). I personally scribed for TIFFANY CASAS MD (GABE) on 01/23/25 at 12:35. Electronically submitted by Tasia Osborne ([facility] I personally scribed for TIFFANY CASAS MD (GABE) on 01/23/25 at 13:21. Electronically submitted by Tasia Osborne ([facility] TIFFANY CASAS MD Jan 23, 2025 12:29
[2025-01-23] MEDS ORDERED: ONDANSETRON HCL 4 MG/2 ML VIAL IV ONE (12:30)
[2025-01-23] MEDS ORDERED: PANTOPRAZOLE 40 MG/10 ML VIAL INJ IV ONE (12:30)
[2025-01-23] MEDS ORDERED: SODIUM CHLORIDE 0.9% 1,000 ML IV ONE (12:30)
[2025-01-23] MEDS ORDERED: ACETAMINOPHEN 500 MG TAB or CAP PO ONE (12:30)
--- NOTE | 2025-01-23 13:12 | DVH ---
INDICATION: pain/vb 12d post r/o ret POC TECHNIQUE: Multiple real-time grayscale transabdominal sonographic images along with color and duplex Doppler of the uterus and ovaries were obtained. COMPARISON: None FINDINGS: The uterus measures 12 x 9 x 7 cm. The endometrial stripe measures 2.6 cm. The right ovary measures 3 x 3 x 3 cm. The left ovary measures 3 x 1 x 3 cm. Subsequent color and duplex Doppler interrogation of the ovaries demonstrated symmetric vascular flow to both ovaries, though this does not exclude the possibility of torsion due to the dual blood suppl y. IMPRESSION: 1. Fluid in the endometrium with debris seen, likely representing hemorrhage.
[2025-01-23 13:49] LABS: Hematocrit 36.9 % (36.0-46.0); Mean Corpuscular Hemoglobin 24.5 pg (28.0-32.0)
[2025-01-23 13:51] LABS: Hemoglobin 12.0 g/dL (12.2-16.2); Mean Corpuscular Volume 75.5 fL (80.0-100.0); Nucleated Red Blood Cells % 0.0 %
[2025-01-23 13:58] LABS: Anion Gap 10 (5-15); Carbon Dioxide 27 mmol/L (20-31); Chloride 103 mmol/L (98-107); Potassium 4.1 mmol/L (3.5-5.1); Sodium 140 mmol/L (136-145)
[2025-01-23 13:59] LABS: Calcium 9.4 mg/dL (8.7-10.4)
[2025-01-23 14:04] LABS: BUN/Creatinine Ratio 12.1 (10.0-20.0); Blood Urea Nitrogen 7 mg/dL (9-23); Glucose 99 mg/dL (74-106)
--- NOTE | 2025-01-23 15:07 | DVH ---
EXAM: CT CT AB PEL WO CON-NO ORAL OR IV INDICATION: upper abd pain, n/v TECHNIQUE: Volumetric multidetector CT images of the abdomen and pelvis were obtained without contras t. All CT scans at this facility use dose modulation, iterative reconstruction, and/or weight based d osing when appropriate to reduce radiation dose to as low as reasonably achievable. COMPARISON: None FINDINGS: [LOWER CHEST]: The partially visualized lung bases are clear without a pleural effusion. The cardiac size is normal without pericardial effusion. question slight asymmetric thickening of the right breas t. [LIVER]: Normal hepatic size without suspicious focal lesion. [GALLBLADDER AND BILIARY TREE]: No cholelithiasis. [SPLEEN]: Unremarkable. [PANCREAS]: Unremarkable. [ADRENAL GLANDS]: Unremarkable [KIDNEYS]: No hydronephrosis. No nephroureterolithiasis. No suspicious focal lesion. [BLADDER]: Unremarkable for the degree distention. [REPRODUCTIVE ORGANS]: Enlargement of the uterus compatible with the given history of post gravid sta te. No soft tissue emphysema along the endometrial canal. [BOWEL/MESENTERY]: Stomach is normal. No CT evidence of bowel obstruction. normal appendix. [ASCITES]: Absent [LYMPHADENOPATHY]: No pathologically enlarged lymph nodes by CT size criteria [VASCULATURE]: No aneurysmal dilatation. [ABDOMINAL WALL]: Unremarkable. [MUSCULOSKELETAL]: No acute fracture or aggressive focal osseous lesion. Multifocal degenerative gar ge of the visualized spine. IMPRESSION: 1. No CT evidence of an acute abdominal/pelvic process. 2. Post gravid uterus. 3. Asymmetric right breast skin thickening correlate with physical exam. Underlying cellulitis not ex cluded. 4. No hydronephrosis or nephroureterolithiasis. Normal appendix
[2025-01-23 15:41] LABS: Urine Protein, UAD TRACE (Negative)
--- NOTE | 2025-01-23 17:15 | DVHINCON2 ---
Date of service: Jan 23, 2025 Referring Physician ER attending ANNIKA POWELL Reason for Consultation Patient is 12 days without complications came in as she is having intermittent episodes of heavy uterine bleeding and cramping. History of Present Illness History Source: Patient Exam Limitations: No limitations Home Meds Active Scripts Docusate Sodium (Colace) 100 Mg Cap, 1 CAP PO BID, #60 CAP 2 Refills Prov:KALEB HERNANDEZ CNM 01/12/25 Ibuprofen Micronized (MOTRIN TABLET) 600 Mg Tb, 600 MG PO Q6HPRN PRN for 20 Days, #80 TAB Prov:KALEB HERNANDEZ CNM 01/12/25 Reported Medications Vit W/ Ferrous Fumara ( One Daily) Daily Tab, 1 TAB PO DAILY, #90 TAB 3 Refills 12/09/24 Past Medical History Cardiac: No pertinent Hx Pulmonary: No pertinent Hx Central Nervous System: No pertinent Hx GI: No pertinent Hx Hemotology/Oncology: No pertinent Hx Hepatobiliary: No pertinent Hx Psychiatric: No pertinent Hx Musculoskeletal: No pertinent Hx Rheumotologic: No pertinent Hx Infectious Disease: No peritnent Hx ENT: No pertinent Hx Renal/: No pertinent Hx Endocrine: No pertinent Hx Dermatology: No pertinent Hx Review of Systems Constitutional: No symptom reported Ears, Nose, & Throat: No symptom reported Eyes: No symptom reported Pulmonary/Respiratory: No symptom reported Cardiovascular: No symptom reported Gastrointestinal: No symptom reported Genitourinary: No symptom reported Musculoskeletal: No symptom reported Skin: No symptom reported Psychiatric: No symptom reported Endocrine: No symptom reported Hemotologic/Lymphatic: No symptom reported H&P Exam Vital Signs Vital Signs Date Time Temp Pulse Resp B/P (MAP) Pulse Ox O2 Delivery O2 Flow Rate FiO2 01/23/25 11:38 98.1 96 15 124/74 99 98.1 Pelvic Exam: External exam normal, Bimanual exam normal, Speculum exam normal, Active bleeding (Mild old venous blood no tissue noted cervical os closed) Neuro/Mental St: Alert Appearance: Appropriate appearance Thoughts/Psych: Normal thought pattern Wounds None Labs/Xrays Labs Test 01/23/25 13:05 01/23/25 12:10 Range/Units White Blood Count 5.7 4.4-10.8 10^3/uL Red Blood Count 4.89 4.0-5.20 10^6/uL Hemoglobin 12.0 L 12.2-16.2 g/dL Hematocrit 36.9 36.0-46.0 % Mean Corpuscular Volume 75.5 L 80.0-100.0 fL Mean Corpuscular Hemoglobin 24.5 L 28.0-32.0 pg Mean Corpuscular Hemoglobin Concent 32.4 32.0-36.0 g/dL Red Cell Distribution Width 18.1 H 11.8-14.3 % Platelet Count 390 140-450 10^3/uL Mean Platelet Volume 7.1 6.9-10.8 fL Neutrophils (%) (Auto) 65.2 37.0-80.0 % Lymphocytes (%) (Auto) 26.1 10.0-50.0 % Monocytes (%) (Auto) 6.5 0.0-12.0 % Eosinophils (%) (Auto) 1.9 0.0-7.0 % Basophils (%) (Auto) 0.3 0.0-2.0 % Neutrophils # (Auto) 3.7 1.6-8.6 10 ^3/uL Lymphocytes # (Auto) 1.5 0.4-5.4 10 ^3/uL Monocytes # (Auto) 0.4 0-1.3 10 ^3/uL Eosinophils # (Auto) 0.1 0-0.8 10 ^3/uL Basophils # (Auto) 0 0-0.2 10 ^3/uL Nucleated Red Blood Cells 0.0 % Sodium Level 140 136-145 mmol/L Potassium Level 4.1 3.5-5.1 mmol/L Chloride Level 103 98-107 mmol/L Carbon Dioxide Level 27 20-31 mmol/L Anion Gap 10 5-15 Blood Urea Nitrogen 7 L 9-23 mg/dL Creatinine 0.58 0.550-1.02 mg/dL Glomerular Filtration Rate Calc 124 >90 mL/min BUN/Creatinine Ratio 12.1 10.0-20.0 Serum Glucose 99 74-106 mg/dL Calcium Level 9.4 8.7-10.4 mg/dL Lipase 49 12-53 U/L Beta HCG, Quantitative 1.8 1.5-4.2 mIU/mL Urine Color Colorless Yellow Urine Clarity Turbid H Clear Urine pH 6.5 5.0-9.0 Urine Specific [place] 1.011 1.001-1.035 Urine Protein Trace H Negative Urine Ketones Negative Negative Urine Blood 3+ H Negative /uL Urine Nitrite Negative Negative Urine Bilirubin Negative Negative Urine Urobilinogen Normal Negative mg/dL Urine Leukocyte Esterase 3+ Negative /uL Urine RBC 1 0 - 4 /hpf Urine Microscopic WBC 37 H 0-5 /HPF Urine Squamous Epithelial Cells Few <5 /hpf Urine Bacteria Few H None Seen /hpf Urine Glucose Normal Normal mg/dL Assessment/Plan Admitting Diagnosis: Mild retained POCs and clots no significant bleeding no significant pain no significant anemia 2' Diagnosis/Co-morbidities Retained clots possible membranes status post Plan Outpatient management Cytotec 200 mcg insert 4 tablets vaginally in ER prior to discharge patient instructed to take Advil or Motrin as needed p.r.n. pain or cramps at home. Follow up doctor Ivette prn or 2 weeks; return to ER NPO if significant heavy prolonged bleeding uncontrolled pain decreased level of consciousness Plan discussed with: Patient FAROOQ,ROCKYKATY aKn DO Jan 23, 2025 17:15
[2025-01-23 17:58] VITALS: BP 106/79; PULSE 97; RESP 18; O2SAT 97
[2025-01-23] MEDS ORDERED: ACET-1304 PO (19:39)
[2025-01-23] MEDS ORDERED: CEPH500C PO (19:39)
[2025-01-23] MEDS ORDERED: IBUP1TAB5 PO (19:39)
[2025-01-23] MEDS ORDERED: ZOFR4T PO (19:39)
== END 2025-01-23 23:25 | disposition home or self-care (01) ==
LOC: ER 11:36
DX: O72.2 Delayed and secondary postpartum hemorrhage (principal); N39.0 Urinary tract infection, site not specified
CPT/HCPCS: 36415; 74176; 76856; 80048; 81001; 83690; 84702; 85025

== ENCOUNTER 2025-01-28 21:36 | Emergency (ER) | payer OTHER ==
[~2025-01-28] VITALS: Ht 160 cm; Wt 104.4 kg
[~2025-01-28 21:36] MED LIST changes: +ACET-1304 PO; +CEPH500C PO; +IBUP1TAB5 PO; +ZOFR4T PO
--- NOTE | 2025-01-28 23:05 | ED.PDOC ---
History of Present Illness HPI Comments 30 y/o F presents with c/c palpitations. Onset of symptoms at around 2030, this evening. Patient comments only notable history of being 2x weeks and evaluated for preeclampsia then. Otherwise, no further pertinent history. Denial of any further acute symptoms. Chief Complaint: Chest Pain Time Seen by MD: 21:40 Allergies: Coded Allergies: NO KNOWN ALLERGIES (Unverified , 12/02/24) Home Meds Active Scripts Ondansetron Odt 4MG Tab (ZOFRAN PO) 4 Mg Tb, 4 MG PO TID PRN, #20 TAB Prn nausea/vomiting ODT TAB-DISSOLVE IN MOUTH, THEN SWALLOW Prov:TIFFANY CASAS MD 01/23/25 Acetaminophen (Tylenol Extra Strength) 500 Mg Tab, 1000 MG PO Q6HP PRN, #30 TAB Prn pain Prov:TIFFANY CASAS MD 01/23/25 Ibuprofen Micronized (Ibuprofen) 600 Mg Tab, 600 MG PO Q6HP PRN, #30 TAB Prn pain. Take with food. 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: Other Family History Family History: Reviewed,noncontributory to illness Social History Smoker: Non-Smoker Alcohol: Denies ETOH Use Drugs: Denies Drug Use Lives In: Home All Other Systems: Reviewed and Negative (as per HPI) Physical Exam General Appearance: No Apparent Distress, Obese HEENT: Normal ENT Inspection, Pharynx Normal, TMs Normal Neck: Full Range of Motion, Non-Tender, Normal, Normal Inspection Respiratory: Chest Non-Tender, Lungs Clear, No Accessory Muscle Use, No Respiratory Distress, Normal Breath Sounds Cardiovascular: No Edema, No JVD, No Murmur, No Gallop, Normal Peripheral Pulses, Regular Rate/Rhythm Breast Exam: Deferred Gastrointestinal: No Organomegaly, Non Tender, No Pulsatile Mass, Normal Bowel Sounds, Soft Genitalia: Deferred Pelvic: Deferred Rectal: Deferred Extremities: No calf tenderness, Normal capillary refill, Normal inspection, Normal range of motion, Non-tender, No pedal edema Musculoskeletal : Apperance: Normal Neurologic: Alert, user interface artist II-XII nml as Tested, No Motor Deficits, Normal Affect, Normal Mood, No Sensory Deficits Cerebellar Function: Normal Reflexes: Normal Skin: Dry, Normal Color, Warm Lymphatic: No Adenopathy Was a procedure done? Was a procedure done?: No EKG EKG : Pulse Rate (adult): 76 [place]: Normal Cardiac Rhythm: NSR Block: None Hypertrophy: None ST: Normal Differential Dx Considerations may include: arrhythmia, electrolyte imbalance, dehydration, viral syndrome, among other s X-Ray, Labs, Meds, VS Vital Signs Date Time Temp Pulse Resp B/P (MAP) Pulse Ox O2 Delivery O2 Flow Rate FiO2 01/29/25 01:21 75 01/28/25 23:57 98.3 72 21 146/95 (112) 98 98.3 01/28/25 23:50 83 01/28/25 23:05 76 01/28/25 21:43 76 01/28/25 21:37 98.3 75 16 132/87 99 98.3 Lab Test 01/28/25 23:59 01/28/25 22:58 01/28/25 21:56 Range/Units Urine Color Colorless Yellow Urine Clarity Turbid H Clear Urine pH 6.0 5.0-9.0 Urine Specific [place] 1.010 1.001-1.035 Urine Protein Negative Negative Urine Ketones Negative Negative Urine Blood 2+ H Negative /uL Urine Nitrite Negative Negative Urine Bilirubin Negative Negative Urine Urobilinogen Normal Negative mg/dL Urine Leukocyte Esterase 2+ Negative /uL Urine RBC 16 0 - 4 /hpf Urine Microscopic WBC 127 H 0-5 /HPF Urine Squamous Epithelial Cells Mod <5 /hpf Urine Bacteria Few H None Seen /hpf Urine Mucus Few None Seen Urine Yeast (Budding) Occasional None Seen /hpf Urine Glucose Normal Normal mg/dL Troponin I High Sensitivity < 3 L < 3 L </=34 ng/L White Blood Count Pending Red Blood Count Pending Hemoglobin Pending Hematocrit Pending Mean Corpuscular Volume Pending Mean Corpuscular Hemoglobin Pending Mean Corpuscular Hemoglobin Concent Pending Red Cell Distribution Width Pending Platelet Count Pending Mean Platelet Volume Pending Neutrophils (%) (Auto) Pending Lymphocytes (%) (Auto) Pending Monocytes (%) (Auto) Pending Basophils (%) (Auto) Pending Neutrophils # (Auto) Pending Lymphocytes # (Auto) Pending Monocytes # (Auto) Pending Sodium Level 140 136-145 mmol/L Potassium Level 3.9 3.5-5.1 mmol/L Chloride Level 105 98-107 mmol/L Carbon Dioxide Level 23 20-31 mmol/L Anion Gap 12 5-15 Blood Urea Nitrogen < 5 L 9-23 mg/dL Creatinine 0.55 0.550-1.02 mg/dL Glomerular Filtration Rate Calc 126 >90 mL/min BUN/Creatinine Ratio 9.1 L 10.0-20.0 Serum Glucose 104 74-106 mg/dL Calcium Level 9.1 8.7-10.4 mg/dL [place] [id number] Ph: [phone] DIAGNOSTIC IMAGING Diagnostic Imaging Report : [id number] Signed PATIENT: JAVIER IBANEZ ACCT: [id number] UNIT: [id number] : 1995 LOC: ER ROOM / BED: / AGE / SEX: 30 / F ADM STATUS: REG ER SERVICE 36 ORDERING PHYSICIAN: GREG CANTU MD PROCEDURE(s): CXR1 - CHEST XRAY 1 VIEW REASON: palpitations ORDER NUMBER(s): [id number], ACCESSION NUMBER(s): [id number] CHEST RADIOGRAPH Indication: palpitations Technique: 1 view Comparison: None FINDINGS: Lines and Tubes: None Lungs/Pleura: No focal consolidation, pleural effusion or pneumothorax. Cardiomediastinum: Unremarkable. Other: No acute osseous abnormality. IMPRESSION: 1. No acute cardiopulmonary abnormality. ATED BY: ALIYAH KOWALSKI MD DICTATED DATE/TIME: 01/28/252322 SIGNED BY: ALIYAH KOWALSKI MD SIGNED DATE/TIME: 01/28/252322 CC: Time of 1ST Reevaluation: 22:10 Reevaluation 1ST: Unchanged Patient Education/Counseling: Diagnosis, Treatment, Need For Follow Up Family Education/Counseling: No Family Present Comments Although we have not capture any arrhythmia, patient reports that she was feeling more palpitation and lightheadedness while waiting in the lobby. Unfortunately because of the over crowding, she was not put on the awake overnight monitor. Patient will be admitted for further evaluation and continuous cardiac monitoring to look for the source of her palpitation and dizziness. Additional Information Previous visits: N/A The following tests were ordered, and results were reviewed by me: CXR, UA, EKG, troponin Additional Information was gathered from interviewing the following independent historians: N/A I reviewed and agreed with the following test results read by other providers: CXR I discussed treatment and results with medical personnel and: patient SEPSIS Sepsis Screen Date sepsis recognized/suspect: Jan 28, 2025 Time Sepsis recognized/suspect: 2136 Recent Procedure: No On Antibiotic Therapy: No Respiratory Rate >20: No Heart Rate >90: No Temp<36 C (96.8 F) or >38.3 C: No SBP <90 or MAP <65 mmHG: No New Acute Mental Status Change: No Is the patient on CPAP, BIPAP,: No Physician Orders Electrocardigram (01/28/25 21:41) Electrocardigram (01/28/25 22:41) Electrocardigram (01/29/25 00:41) Chest Xray 1 View (01/28/25 22:37) Complete Blood Count (01/29/25 02:04) Vital Signs Date Time Temp Pulse Resp B/P (MAP) Pulse Ox O2 Delivery O2 Flow Rate FiO2 01/29/25 01:21 75 01/28/25 23:57 98.3 72 21 146/95 (112) 98 98.3 01/28/25 23:50 83 01/28/25 23:05 76 01/28/25 21:43 76 01/28/25 21:37 98.3 75 16 132/87 99 98.3 Laboratory Tests Test 01/28/25 21:56 White Blood Count Pending Departure 1 Departure Time of Disposition: 02:56 Impression: Primary Impression: Palpitation Additional Impressions: Dizziness UTI (urinary tract infection) Disposition: 09 ADMITTED INPATIENT Admit to: Tele Condition: Serious Discharged With: Self Critical Care Note Critical Care Time?: Yes (55 min-critical care time only) Critical care comment: Due to concerns for patients condition deteriorating, the care required my highest level of attention and readiness to intervene. I assessed the patient, reviewed the medical records, ordered the appropriate tests and treatments, then reassessed for results and responsiveness. I communicated with medical personnel and consultants and formulated a plan of care. Total critical care time excludes any procedures Stability Stability form required: No Heart Score Heart Score: Heart Score Response (Comments) Value History N/A 0 EKG N/A 0 Age N/A 0 Risk Factors N/A 0 Troponin N/A 0 Total 0 I personally scribed for GREG CANTU MD ([email or web address]) on 01/28/25 at 23:05. Electronically submitted by Carlos Manuel Hutchinson ([email or web address]). I personally scribed for GREG CANTU MD ([email or web address]) on 01/29/25 at 00:34. Electronically submitted by Carlos Manuel Hutchinson ([email or web address]). GREG CANTU MD Jan 28, 2025 23:05
--- NOTE | 2025-01-28 23:26 | DVH ---
CHEST RADIOGRAPH Indication: palpitations Technique: 1 view Comparison: None FINDINGS: Lines and Tubes: None Lungs/Pleura: No focal consolidation, pleural effusion or pneumothorax. Cardiomediastinum: Unremarkable. Other: No acute osseous abnormality. IMPRESSION: 1. No acute cardiopulmonary abnormality.
[2025-01-28 23:57] VITALS: BP 146/95; RESP 21; TEMP 98.3; O2SAT 98
[2025-01-29 01:21] VITALS: PULSE 75
[2025-01-29 02:04] LABS: Urine Budding Yeast OCCASIONAL /hpf (None Seen); Urine Protein, UAD Negative (Negative)
[2025-01-29 02:34] LABS: Chloride 105 mmol/L (98-107); Potassium 3.9 mmol/L (3.5-5.1); Sodium 140 mmol/L (136-145)
[2025-01-29 02:35] LABS: Anion Gap 12 (5-15); Carbon Dioxide 23 mmol/L (20-31)
[2025-01-29 02:36] LABS: Calcium 9.1 mg/dL (8.7-10.4)
[2025-01-29 02:40] LABS: Glucose 104 mg/dL (74-106)
[2025-01-29 02:50] LABS: BUN/Creatinine Ratio 9.1 (10.0-20.0); Blood Urea Nitrogen < 5 mg/dL (9-23)
[2025-01-29 02:58] LABS: Hematocrit 34.2 % (36.0-46.0); Hemoglobin 11.3 g/dL (12.2-16.2); Mean Corpuscular Hemoglobin 25.2 pg (28.0-32.0); Mean Corpuscular Volume 76.3 fL (80.0-100.0); Nucleated Red Blood Cells % 0.2 %
--- NOTE | 2025-01-29 07:02 | ECG ---
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
--- NOTE | 2025-01-29 19:50 | ECG ---
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
--- NOTE | 2025-01-30 12:54 | ECG ---
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
== END 2025-01-29 03:01 | disposition left against medical advice (07) ==
LOC: ER 21:38
DX: R00.2 Palpitations (principal); N39.0 Urinary tract infection, site not specified; R42 Dizziness and giddiness
CPT/HCPCS: 36415; 71045; 80048; 81001; 84484; 85025; 93005